=== PATIENT | male | born 1955 | race Caucasian/White ===

== ENCOUNTER 2018-05-04 22:03 | Inpatient (IN) | payer MEDICAID, SELFPAY ==
[2018-05-04 22:04] VITALS: BP 144/86; PULSE 125; RESP 20; TEMP 39.1; O2SAT 94; BMI 35.6
--- NOTE | 2018-05-04 22:21 | RAD_ITS ---
STUDY: X-RAY CHEST REASON FOR EXAM: Male, 63 years old. Shortness of breath, fever TECHNIQUE: A single frontal view of the chest was obtained. COMPARISON: Chest radiographs dated April 29, 2016; chest CT dated February 15, 2017 FINDINGS: The lungs are hyperinflated. There are patchy airspace opacities in the right upper lung. There is focal pleural thickening in the right upper chest. The cardiac silhouette is normal in size. There is prominence in the right hilar region and right suprahilar region. Normal visualized pulmonary arteries. Normal visualized aortic arch and descending thoracic aorta. There are diffuse degenerative changes of the visualized spine. There are degenerative changes in both shoulders. There is no demonstrated abnormality of the visualized upper abdomen. RAD/Chest 1 View (Portable) IMPRESSION: There are patchy opacities in the right upper lung, possible consolidation/infection. There is no obvious effusion. There is fullness in the right hilum and right suprahilar region, possible mass. There is also focal pleural thickening in the right upper chest. Chest CT with contrast is recommended for further characterization. Electronically Signed: Zaria Ewing MD at 23:38 EDT Tel Direct: [phone], Service support ,
--- NOTE | 2018-05-04 22:21 | EKG12_ITS ---
Test Reason : SOB Blood Pressure : / mmHG Vent. Rate : 111 BPM Atrial Rate : 111 BPM P-R Int : 172 ms QRS Dur : 082 ms QT Int : 320 ms P-R-T Axes : 013 001 044 degrees QTc Int : 435 ms Sinus tachycardia with Premature supraventricular complexes Otherwise normal ECG Confirmed by GAETANO REID, NIKHIL ([id number]), bloom conveyor operator BYRON SAN ([id number] on 05/06/2018 3:42:01 PM Referred By: DR SOTO Confirmed By:NIKHIL SALTER MD
[2018-05-04 22:45] VITALS: PULSE 108; RESP 20
[2018-05-04] MEDS: Albuterol 2.5 MG/3 ML VIAL.NEB. INHALATION (22:45)
[2018-05-04] MEDS: Ipratropium/Albuterol Sulfate 3 ML AMPUL.NEB INHALATION (22:45)
--- NOTE | 2018-05-04 22:51 | ED.VISSUMM ---
- ER Visit Summary Date of Service: 05/04/18 Chief Complaint: Fever, cough, shortness of breath History of Present Illness: The patient is a 63 M with history of squamous cell lung cancer who follows with oncology at [facility] presents to the emergency department fever, cough, shortness of breath. The patient's last chemo was almost 2 weeks ago. He was hospitalized 8 days ago at [facility]. He had a fever at that time. He was diagnosed with pneumonia and placed on Levaquin. He states that at home, he is continued to have dyspnea and fever. He is also had generalized weakness and shortness of breath. He had productive cough. Tonight, he just felt like he could not catch his breath and had increasing weakness. He has had 35 radiation treatments to his chest. He also has a known history of thrombocytopenia. He states that he is just felt generally weak and not myself. Physical Examination: Vital signs reviewed General: Well-nourished, well-developed Head: Normocephalic, atraumatic Eyes: Pupils equal and reactive, extraocular muscles intact Neck, supple, no lymphadenopathy Heart: Regular tachycardic rhythm Respiratory: No distress, diminished with wheezes throughout Abdomen: Soft, nontender, nondistended, no peritoneal signs Back: Nontender Extremities: Nontender, no edema, no cords Skin: Normal color no rash Neuro: Alert and oriented, no focal or lateralizing deficits Test Results: [] Emergency Department Course and Treatment: The patient presents with cough, fever, and shortness of breath. He does have a history of squamous cell lung cancer. He was actually just recently admitted at [facility] for pneumonia. He has been on Levaquin for a full 7-day course. He had persistent dyspnea, cough, pneumonia. Sepsis workup was pursued. IV was established. Blood cultures were obtained. The patient was given Solu-Medrol and nebulized breathing treatments. He had improvement of his aeration. His chest x-ray does demonstrate a right upper lobe infiltrate. The patient was started on meropenem and then when he was found to not be neutropenic, I did cover him with vancomycin given his recent hospitalization. Screening labs do show pancytopenia which does appear to be chronic for the patient. He has known thrombocytopenia and at his baseline per the patient. On reevaluation, he is comfortable. However, he has definitive sepsis with pneumonia. I will broaden his antibiotics and bad vancomycin. The patient was discussed with the hospitalist and will be admitted. Treatment Plan: Admission Disposition: Admission Impression: 1. Sepsis 2. Healthcare associated pneumonia 3. History of squamous cell lung cancer This note was generated with [employer] dictation software. It may contain incorrect words, spelling, and punctuation that were not noted in review of the chart prior to signing ED Disposition - Plan for ED Patient: Chief Complaint: Shortness of Breath Referrals: Bravo Walters MD [Primary Care Provider] -
[2018-05-04 23:05] VITALS: BP 116/72; PULSE 107; RESP 19; O2SAT 98; O2SAT 99
[2018-05-04] MEDS: Acetaminophen 500 MG Tablet 1000 MG PO (23:09)
[2018-05-04] MEDS: 0.9% Normal Saline 1,000 ML 150 ML IV (23:09)
[2018-05-04] MEDS: MethylPREDNISolone 125 MG/2 ML Vial IV (23:09)
[2018-05-04 23:24] LABS: Partial Thromboplast Time 26.9 Seconds (24.1-36.2)
[2018-05-04 23:45] LABS: Absolute Lymphocyte Count 0.59 X10^3/ul (0.83-4.51); Absolute Neutrophil Count 7.5 X10^3/uL (2.0-7.7); Basophil# 0.01 X10^3/uL; Basophil% 0.1 % (0-1); Hemoglobin 9.4 g/dl (13.0-16.5); Lymphocyte # 0.59 X10^3/ul (4.0); Lymphocyte % 6.4 % (19-41); Mean Corp Hgb Conc 31.3 g/gl (32-36); Mean Corpuscular Hgb 33.8 pg (27.0-32.0); Mean Corpuscular Volume 107.9 fL (80-94); Mean Platelet Vol. 12.7 fl (6.2-12.0); Monocyte# 1.09 X10^3/uL; Monocyte% 11.8 % (0-10); Neutrophil # 7.48 X10^3/uL (2.7-7.7); RBC Distribution Width CV 19.1 % (11.6-14.6); RBC Distribution Width SD 68.8 fl (35.1-43.9); Red Blood Count 2.78 M/mm3 (4.6-6.2); White Blood Count 9.2 K/mm3 (4.4-11.0)
[2018-05-04 23:47] LABS: AST(SGOT) 17 U/L (15-37); Alanine Aminotransfer ALT/SGPT 21 U/L (16-61); Albumin, Serum 2.8 g/dL (3.2-5.0); Alkaline Phosphatase 71 U/L (45-117); Anion Gap 9 (5-15); BUN 12 mg/dL (7-18); BUN/Creat Ratio 15.3 RATIO (10-20); Calcium,Total 7.5 mg/dL (8.5-10.1); Chloride 98 mmol/L (98-107); Creatinine, Serum 0.78 mg/dL (0.70-1.30); EST Glomerular Filtration Rate 106 mL/min (>60); Est Glom Filt Rate - Afr Amer 128 mL/min (>60); Estimated Creatinine Clearance 80.11 ml/min; Globulin 2.8 g/dL (2.2-4.2); Glucose 100 mg/dL (74-106); POSITIVE COUNT YES; POSITIVE DIFFERENTIAL YES; POSITIVE MORPHOLOGY YES; Protein, Total 5.6 g/dL (6.4-8.2); Sodium Level 137 mmol/L (136-145)
[2018-05-04 23:48] LABS: Differential Indicated SCAN CRITERIA MET; Platelet Count 48 K/mm3 (150-450)
--- NOTE | 2018-05-04 23:49 | ED.RN ---
lab called with critical lab results. PLT count 48. Dr. Mosqueda made aware. no new orders at this time
[2018-05-05] VITALS (19 sets, daily range): BP systolic 112–141; BP diastolic 59–69; PULSE 84–112; RESP 14–18; TEMP 36.6–37.4; O2SAT 2–98; BMI 36.1; BMI 36.2
[2018-05-05 00:08] LABS: Differential Comment SCAN
[2018-05-05 00:09] LABS: Anisocytosis 1+; Hypochromasia 1+; Macrocytosis 1+; Platelet Estimate MKD DEC (ADEQ); Platelet Morphology LARGE; Polychromasia 1+
[2018-05-05 00:10] LABS: Toxic Granulation 1+; Vacuolated Cells RARE
--- NOTE | 2018-05-05 00:18 | PCM.HP.STD ---
Problem List (1) Healthcare associated bacterial pneumonia Status: Acute (2) Squamous cell carcinoma of right lung Status: Acute History of Present Illness Date of Admission: 05/05/18 Chief Complaint: Shortness of breath and fever The patient is a 63 year old M with a significant history of former tobacco abuse; right lung squamous cell carcinoma; COPD; home oxygen dependency at night;and diabetes who presents with shortness of breath and fever that started about 10 days ago. Patient reported that he was admitted at [facility] and was treated with Levaquin and prednisone. He completed his Levaquin dose 2 days before coming to the emergency department; and his prednisone a day before coming to the emergency department. Patient has shortness of breath at rest. He shortness of breath increases excessively with activities. Associated with symptoms is productive cough of yellowish green color. He also reports some nasal congestion. Associated with his symptoms is poor appetite. He reports losing about 26 pounds in the last 4-5 months. In regard to his squamous cell lung cancer he sees an oncologist in [place]. He reports that he has a 2 inch mass in his right lungs and bilateral lymph nodes suspicious for cancer. He reported that he is scheduled to have a PET scan on May 13 2018 at [place]. Emergency department doctor reported that patient had 35 radiation and a chemotherapy treatment. His last chemotherapy was 13 days ago. Past Medical History Allergies Penicillins Allergy (Verified 05/04/18 22:07) Hives Home Medications: Ambulatory Orders Medication Instructions Recorded Albuterol Aerosols [Ventolin 2.5 mg INHALATION Q6HWA.RT 05/04/18 Aerosols] Albuterol Inhaler [Ventolin Hfa 2 puff INHALATION Q6H PRN PRN 05/04/18 (SP)] Ascorbic Acid [Vitamin C] 500 mg PO DAILY@0800 05/04/18 Budesonide [Pulmicort Flexhaler] 2 puff IH Q12H 05/04/18 Cyanocobalamin [Vitamin B12] 500 mcg PO DAILY@0800 05/04/18 Gabapentin [Neurontin] 300 mg PO TIDCM 05/04/18 Metformin HCl [Glucophage Xr] 500 mg PO DAILY 05/04/18 Omeprazole 40 mg PO DAILY 05/04/18 Simvastatin [Zocor] 40 mg PO DAILY 05/04/18 Tiotropium [place] [Spiriva 2 puff IH DAILY 05/04/18 Respimat] Turmeric/Turmeric Root Extract 500 mg PO BID 05/04/18 [Turmeric 500 mg Capsule] Vitamin E 400 unit PO DAILY 05/04/18 Surgical History: cholecystectomy, - - Right index finger surgery Lives: Alone Smoking Status: Former smoker Alcohol: Occasional - *Family History Maternal History Items: Heart Disease Paternal History Items: Heart Disease Review of Systems Constitutional: Reports: Fever, Weight Change. Denies: Chills HEENT: Reports: Sinus Congestion. Denies: Head Aches, Sinus Drainage Cardiovascular: Denies: Chest Pain, Palpitations Respiratory: Reports: Cough, Shortness of breath at rest, Shortness of breath upon exertion, Sputum production Gastrointestinal: Denies: Abdominal Pain, Nausea, Vomiting Genitourinary: Denies: Dysuria Musculoskeletal: Denies: Joint Pain, Joint Tenderness Skin: Denies: Rash, Wounds Neurological: Denies: Numbness, Tingling, Focal weakness Psychiatric: Denies: Anxiety, Depression, Homicidal Ideations, Suicidal Ideations Hematologic/ Lymphatic: Denies: Easy Bruising, Easy Bleeding VTE Information - Inpt Only VTE Present on Admission: No VTE Mechan Device Prophylaxis: SCD's VTE Pharm Prophylaxis ordered?: No Patient Problems: Active and Suspected Problems Healthcare associated bacterial pneumonia (Acute) Squamous cell carcinoma of right lung (Acute) - Physical Exam General: Alert, Oriented x3, Cooperative HEENT: Atraumatic, PERRLA, EOMI, Normocephalic Neck: Supple, No JVD, Negative Carotid Bruits Lungs: Clear to auscultation, Normal air movement, Tachypneic, Wheezes Cardiovascular: No murmurs, Tachycardic Abdomen: Bowel Sounds Present, Soft, Non Tender Extremities: No edema, Capillary Refill Less than 3 Seconds Skin: No rashes, No breakdown Musculoskeletal: No Tenderness to Palpation of Joints or Extremities Neurological: Cranial nerves II-XII grossly intact Psych/Mental Status: Normal Affect, Appropriate Vital Signs Temp Pulse Resp BP Pulse Ox 99.3 F H 112 H 16 125/59 H 95 05/05/18 00:12 05/05/18 00:12 05/05/18 00:12 05/05/18 00:12 05/05/18 00:12 Oxygen Flow Rate (L/min) 2 Oxygen Delivery Method Nasal Cannula Weight: 94.347 kg Body Mass Index (BMI) 35.6 Laboratory Tests Past 24 Hrs 05/04/18 05/04/18 05/04/18 22:55 22:55 22:55 WBC 9.2 RBC 2.78 L Hgb 9.4 L Hct 30.0 L MCV 107.9 H MCH 33.8 H MCHC 31.3 L RDW 19.1 H RDW Differential 68.8 H Plt Count 48 L* MPV 12.7 H Immature Gran % (Auto) 0.700 Neut % (Auto) 81.0 H Lymph % (Auto) 6.4 L [place]arrant % (Auto) 11.8 H Eos % (Auto) 0.0 Baso % (Auto) 0.1 Absolute Neuts (auto) 7.5 Absolute Lymphs (auto) 0.59 L Total Counted Not Reportable Differential Comment RARE Diff Path Review May foll Toxic Granulation 1+ Platelet Estimate MKD DEC Plt Morphology Comment LARGE Polychromasia 1+ Hypochromasia 1+ Anisocytosis 1+ Macrocytosis 1+ PT 13.0 INR 1.0 APTT 26.9 Sodium 137 Potassium 4.0 Chloride 98 Carbon Dioxide 30.0 Anion Gap 9 BUN 12 Creatinine 0.78 Estim Creat Clear Calc 80.11 Est GFR (MDRD) Af Amer 128 Est GFR (MDRD) Non-Af 106 BUN/Creatinine Ratio 15.3 Glucose 100 Lactic Acid Calcium 7.5 L Total Bilirubin 0.70 AST 17 ALT 21 Alkaline Phosphatase 71 Total Protein 5.6 L Albumin 2.8 L Globulin 2.8 Albumin/Globulin Ratio 1.0 Blood Type Antibody Screen 05/04/18 05/04/18 22:55 23:58 WBC RBC Hgb Hct MCV MCH MCHC RDW RDW Differential Plt Count MPV Immature Gran % (Auto) Neut % (Auto) Lymph % (Auto) [place] % (Auto) Eos % (Auto) Baso % (Auto) Absolute Neuts (auto) Absolute Lymphs (auto) Total Counted Differential Comment Diff Path Review Toxic Granulation Platelet Estimate Plt Morphology Comment Polychromasia Hypochromasia Anisocytosis Macrocytosis PT INR APTT Sodium Potassium Chloride Carbon Dioxide Anion Gap BUN Creatinine Estim Creat Clear Calc Est GFR (MDRD) Af Amer Est GFR (MDRD) Non-Af BUN/Creatinine Ratio Glucose Lactic Acid Pending Calcium Total Bilirubin AST ALT Alkaline Phosphatase Total Protein Albumin Globulin Albumin/Globulin Ratio Blood Type O POSITIVE Antibody Screen NEGATIVE Assessment/Plan All Active Problems Healthcare associated bacterial pneumonia (Acute) Squamous cell carcinoma of right lung (Acute) The patient is a 63 year old M with a significant history of former tobacco abuse; right lung squamous cell carcinoma; COPD; home oxygen dependency at night;and diabetes with persistent pneumonia after previous admission and treatment with Levaquin and steroids. Healthcare associated pneumonia. The patient went to [facility] and was admitted for pneumonia. Different diagnosis include obstructive pneumonia from his cancer. At emergency department his temperature was 102.4. He was tachycardic with heart rate of 130. His respiratory rate was 20. Patient was started on vancomycin and Merrem. Patient is allergic to penicillin. Vancomycin and Merrem continued. Blood cultures are pending Sputum culture ordered. Strep pneumonia antigen and Legionella antigen ordered. Will restart patient on prednisone. Incentive spirometer and acapella ordered. MRSA screen. COPD DuoNeb scheduled Albuterol as needed Prednisone in the setting of pneumonia. Diabetes mellitus Blood glucose on admission was within goal. Metformin continued. Accu-Chek q. before meals at bedtime. Pancytopenia Platelet on admission was 48 Hemoglobin on admission was 9.4. Likely due to chemotherapy. Trend CBC. Squamous cell carcinoma of the right lung. His oncologist is at [place]. While in-house will consult our oncology group. DVT prophylaxis Chemoprophylaxis not ordered due to thrombocytopenia SCD ordered. Code Visit Inpatient E&M: 26085 Init Hosp L3
[2018-05-05 00:33] LABS: Lactic Acid 1.3 mmol/L (0.4-2.0)
--- NOTE | 2018-05-05 02:27 | PCM.RX.CS ---
Consult Pharmacy has been consulted to manage selected antiobiotic: Vancomycin Type of Consult: New start Suspected Infection: Sepsis Prior Doses of Antibiotics Received/Current Regimen: Medications Vancomycin HCl 1,500 mg/ (Sodium Chloride) 530 mls @ 250 mls/hr IV Q12H LENNY Discontinued Medications Vancomycin HCl 1,500 mg/ (Dextrose) 530 mls @ 250 mls/hr IV X1 ONE Stop: 05/05/18 02:17 Last Admin: 05/05/18 00:43 Dose: 250 mls/hr Labs: Sodium 137 mmol/L (136-145) 05/04/18 22:55 Potassium 4.0 mmol/L (3.5-5.1) 05/04/18 22:55 Chloride 98 mmol/L (98-107) 05/04/18 22:55 Carbon Dioxide 30.0 mmol/L (21.0-32.0) 05/04/18 22:55 Anion Gap 9 (5-15) 05/04/18 22:55 BUN 12 mg/dL (7-18) 05/04/18 22:55 Creatinine 0.78 mg/dL (0.70-1.30) 05/04/18 22:55 Est GFR (MDRD) Af Amer 128 mL/min (>60) 05/04/18 22:55 Est GFR (MDRD) Non-Af 106 mL/min (>60) 05/04/18 22:55 BUN/Creatinine Ratio 15.3 RATIO (10-20) 05/04/18 22:55 Glucose 100 mg/dL (74-106) 05/04/18 22:55 Weight used for dosin.6 kg Estimated Creatinine Clearance: 80 Goal Trough: 15-20 mcg/mL Pharmacy Plan for Drug Dosing: Pharmacy Service will continue to monitor and adjust dosing as required. Follow-Up Labs: Trough Vancomycin Labs to be done on [date and time ordered]: 05/06/18 @1230
[2018-05-05] MEDS: Ipratropium/Albuterol Sulfate 3 ML AMPUL.NEB INHALATION ×6 (03:15→22:50)
[2018-05-05 05:44] LABS: Red Blood Cells-Urine 0 SEEN /hpf (0-5); Squamous Epithelial Cells - UA 0 SEEN /hpf (0-5)
[2018-05-05 05:51] LABS: Color, Urine Yellow (Yellow); Glucose, Dipstick Normal (Normal); Ketone-Dipstick Negative (Negative); Leukocyte Esterase-Dipstick 25 /ul (Negative); Nitrite-Dipstick Negative (Negative); Occult Blood-Urine 10 /ul (Negative); Protein-Dipstick 15 mg/dl (Negative); Urine Bilirubin Dipstick Negative (Negative); Urine Clarity Sl. Cloudy (Clear); Urine Urobilinogen Normal (Normal); Urine pH 6.5 (5.0 - 8.0)
[2018-05-05 06:16] LABS: Bacteria RARE /hpf (None Seen); Mucous, Urine RARE /hpf (<or=2+); White Blood Cells 0-5 SEEN /hpf (0-5)
[2018-05-05 06:19] LABS: Anion Gap 8 (5-15); BUN 16 mg/dL (7-18); BUN/Creat Ratio 20.5 RATIO (10-20); Calcium,Total 7.7 mg/dL (8.5-10.1); Chloride 99 mmol/L (98-107); Creatinine, Serum 0.78 mg/dL (0.70-1.30); EST Glomerular Filtration Rate 106 mL/min (>60); Est Glom Filt Rate - Afr Amer 129 mL/min (>60); Glucose 247 mg/dL (74-106); Potassium 4.6 mmol/L (3.5-5.1); Sodium Level 137 mmol/L (136-145)
[2018-05-05] MEDS: Ascorbic Acid 500 MG Tablet PO (07:53)
[2018-05-05] MEDS: Gabapentin 300 MG Capsule PO ×3 (07:54→21:36)
[2018-05-05] MEDS: Cyanocobalamin 500 MCG Tablet PO (07:54)
[2018-05-05] MEDS: predniSONE 20 MG Tablet 40 MG PO (07:54)
[2018-05-05] MEDS: Pantoprazole Sodium 40 MG Tablet PO (07:55)
[2018-05-05] MEDS: guaiFENesin 1,200 MG Tablet 1200 MG PO ×2 (07:55→21:36)
[2018-05-05 07:56] LABS: Bedside Glucose 239 mg/dL (70-110)
[2018-05-05 09:54] LABS: M R Staph aureus DNA By PCR Negative (Negative); Probe Check PASS; Specimen Processing Control PASS
--- NOTE | 2018-05-05 11:20 | PCM.PROGNOTE ---
<John Hernandez - Last Filed: 05/05/18 11:20> Patient Problems: Active and Suspected Problems Healthcare associated bacterial pneumonia (Acute) Squamous cell carcinoma of right lung (Acute) Subjective: Pt overall has had little to no improvement. DC'd last sunday from [facility] after being treated for pna. States the pna has never gone away, although he admits he was feeling well when he left the hospital. Fever yesterday, no recurrence so far. Continue to have cough without being able to cough up sputum yet. Continues SOB. Does not use Home O2. - Physical Exam General: Alert, Oriented x3, Cooperative HEENT: Atraumatic, PERRLA, EOMI, Normocephalic Neck: Supple, No JVD, Negative Carotid Bruits Lungs: Clear to auscultation, Normal air movement Cardiovascular: Regular rate, No murmurs Abdomen: Bowel Sounds Present, Soft, Non Tender Extremities: No edema, Capillary Refill Less than 3 Seconds Skin: No rashes, No breakdown Musculoskeletal: No Tenderness to Palpation of Joints or Extremities Neurological: Cranial nerves II-XII grossly intact Psych/Mental Status: Normal Affect, Appropriate, Alert and oriented to time, place, person, mood and affect Vital Signs Temp Pulse Resp BP Pulse Ox 97.9 F 88 16 121/67 H 98 05/05/18 09:55 05/05/18 10:56 05/05/18 10:56 05/05/18 09:55 05/05/18 09:55 Oxygen Flow Rate (L/min) 2 Oxygen Delivery Method Nasal Cannula Weight: 204 lb 2.369 oz Body Mass Index (BMI) 36.1 Intake and Output for Last 24 Hours 05/03/18 05/04/18 05/05/18 23:59 23:59 22:59 Intake Total 120 / 120 Output Total 100 / 100 Balance 20 / 20 Microbiology Past 72 Hours 05/05/18 05:22 Legionella Antigen - Final Urine, Clean Catch 05/05/18 05:22 Streptococcus pneumoniae Antigen (M - Final Urine, Clean Catch Laboratory Tests Past 24 Hrs 05/04/18 05/04/18 05/04/18 22:55 22:55 22:55 WBC 9.2 RBC 2.78 L Hgb 9.4 L Hct 30.0 L MCV 107.9 H MCH 33.8 H MCHC 31.3 L RDW 19.1 H RDW Differential 68.8 H Plt Count 48 L* MPV 12.7 H Immature Gran % (Auto) 0.700 Neut % (Auto) 81.0 H Lymph % (Auto) 6.4 L [place] % (Auto) 11.8 H Eos % (Auto) 0.0 Baso % (Auto) 0.1 Absolute Neuts (auto) 7.5 Absolute Lymphs (auto) 0.59 L Total Counted Not Reportable Differential Comment RARE Diff Path Review May foll Toxic Granulation 1+ Platelet Estimate MKD DEC Plt Morphology Comment LARGE Polychromasia 1+ Hypochromasia 1+ Anisocytosis 1+ Macrocytosis 1+ PT 13.0 INR 1.0 APTT 26.9 Sodium 137 Potassium 4.0 Chloride 98 Carbon Dioxide 30.0 Anion Gap 9 BUN 12 Creatinine 0.78 Estim Creat Clear Calc 80.11 Est GFR (MDRD) Af Amer 128 Est GFR (MDRD) Non-Af 106 BUN/Creatinine Ratio 15.3 Glucose 100 Lactic Acid Calcium 7.5 L Total Bilirubin 0.70 AST 17 ALT 21 Alkaline Phosphatase 71 Total Protein 5.6 L Albumin 2.8 L Globulin 2.8 Albumin/Globulin Ratio 1.0 Urine Color Urine Clarity Urine pH Ur Specific [place] Urine Protein Urine Glucose (UA) Urine Ketones Urine Occult Blood Urine Nitrite Urine Bilirubin Urine Urobilinogen Ur Leukocyte Esterase Urine RBC Urine WBC Ur Squamous Epith Cells Urine Bacteria Urine Mucus MRSA (PCR) Blood Type Antibody Screen 05/04/18 05/04/18 05/05/18 22:55 23:58 05:00 WBC RBC Hgb Hct MCV MCH MCHC RDW RDW Differential Plt Count MPV Immature Gran % (Auto) Neut % (Auto) Lymph % (Auto) [place] % (Auto) Eos % (Auto) Baso % (Auto) Absolute Neuts (auto) Absolute Lymphs (auto) Total Counted Differential Comment Diff Path Review Toxic Granulation Platelet Estimate Plt Morphology Comment Polychromasia Hypochromasia Anisocytosis Macrocytosis PT INR APTT Sodium 137 Potassium 4.6 Chloride 99 Carbon Dioxide 30.0 Anion Gap 8 BUN 16 Creatinine 0.78 Estim Creat Clear Calc 77.00 Est GFR (MDRD) Af Amer 129 Est GFR (MDRD) Non-Af 106 BUN/Creatinine Ratio 20.5 H Glucose 247 H Lactic Acid 1.3 Calcium 7.7 L Total Bilirubin AST ALT Alkaline Phosphatase Total Protein Albumin Globulin Albumin/Globulin Ratio Urine Color Urine Clarity Urine pH Ur Specific [place] Urine Protein Urine Glucose (UA) Urine Ketones Urine Occult Blood Urine Nitrite Urine Bilirubin Urine Urobilinogen Ur Leukocyte Esterase Urine RBC Urine WBC Ur Squamous Epith Cells Urine Bacteria Urine Mucus MRSA (PCR) Blood Type O POSITIVE Antibody Screen NEGATIVE 05/05/18 05/05/18 05:22 07:40 WBC RBC Hgb Hct MCV MCH MCHC RDW RDW Differential Plt Count MPV Immature Gran % (Auto) Neut % (Auto) Lymph % (Auto) [place] % (Auto) Eos % (Auto) Baso % (Auto) Absolute Neuts (auto) Absolute Lymphs (auto) Total Counted Differential Comment Diff Path Review Toxic Granulation Platelet Estimate Plt Morphology Comment Polychromasia Hypochromasia Anisocytosis Macrocytosis PT INR APTT Sodium Potassium Chloride Carbon Dioxide Anion Gap BUN Creatinine Estim Creat Clear Calc Est GFR (MDRD) Af Amer Est GFR (MDRD) Non-Af BUN/Creatinine Ratio Glucose Lactic Acid Calcium Total Bilirubin AST ALT Alkaline Phosphatase Total Protein Albumin Globulin Albumin/Globulin Ratio Urine Color Yellow Urine Clarity Sl. Cloudy Urine pH 6.5 Ur Specific [place] 1.010 Urine Protein 15 H Urine Glucose (UA) Normal Urine Ketones Negative Urine Occult Blood 10 H Urine Nitrite Negative Urine Bilirubin Negative Urine Urobilinogen Normal Ur Leukocyte Esterase 25 H Urine RBC 0 SEEN Urine WBC 0-5 SEEN Ur Squamous Epith Cells 0 SEEN Urine Bacteria RARE Urine Mucus RARE MRSA (PCR) Negative Blood Type Antibody Screen POC Glucose 05/05/18 07:42 POC Glucose 239 H Medical Necessity - Tobacco Use Smoking Status: Former smoker Assessment/Plan All Active Problems Healthcare associated bacterial pneumonia (Acute) Squamous cell carcinoma of right lung (Acute) 1. Acute sepsis 2/2 HCAP present on admission 2/2 postobstructive pna, fever, tachycardia, tachypnea - continue Vanc/merrem. Right lung CA. Continue aerosols, steroids, mucinex, PEP/IS therapy. Urine ag neg. Sputum culture if possible. Blood/Urine Cx pending. 2. Squamous cell lung CA - bernarda oncologist. [facility] consulted. Last chemo about 2 weeks ago. 3. COPD - taper steroids, aerosols. Not wheezy. Treat as presumed exacerbation 4. DMt2 with obesity- sliding scale insulin, metformin 5. GERD - ppi 6. Anemia and thrombocytopenia - suspect 2/2 cancer/chemo. Wait for recommendation per Hem/Onc. Avoid heparin products 7. HLD - on statin DVT ppx: SCDs DC planning: suspect slow recovery This patient was seen by John Hernandez PA-C under the supervision of Doctor Antonella. <Shannon Berman - Last Filed: 05/05/18 13:42> - Physical Exam Vital Signs Temp Pulse Resp BP Pulse Ox 97.9 F 88 16 121/67 H 98 05/05/18 09:55 05/05/18 10:56 05/05/18 10:56 05/05/18 09:55 05/05/18 09:55 Oxygen Flow Rate (L/min) 2 Oxygen Delivery Method Nasal Cannula Weight: 92.6 kg Body Mass Index (BMI) 36.1 Intake and Output for Last 24 Hours 05/03/18 05/04/18 05/05/18 23:59 23:59 22:59 Intake Total 600 / 600 Output Total 100 / 100 Balance 500 / 500 Microbiology Past 72 Hours 05/05/18 05:22 Legionella Antigen - Final Urine, Clean Catch 05/05/18 05:22 Streptococcus pneumoniae Antigen (M - Final Urine, Clean Catch Laboratory Tests Past 24 Hrs 05/04/18 05/04/18 05/04/18 22:55 22:55 22:55 WBC 9.2 RBC 2.78 L Hgb 9.4 L Hct 30.0 L MCV 107.9 H MCH 33.8 H MCHC 31.3 L RDW 19.1 H RDW Differential 68.8 H Plt Count 48 L* MPV 12.7 H Immature Gran % (Auto) 0.700 Neut % (Auto) 81.0 H Lymph % (Auto) 6.4 L [place] % (Auto) 11.8 H Eos % (Auto) 0.0 Baso % (Auto) 0.1 Absolute Neuts (auto) 7.5 Absolute Lymphs (auto) 0.59 L Total Counted Not Reportable Differential Comment RARE Diff Path Review May foll Toxic Granulation 1+ Platelet Estimate MKD DEC Plt Morphology Comment LARGE Polychromasia 1+ Hypochromasia 1+ Anisocytosis 1+ Macrocytosis 1+ PT 13.0 INR 1.0 APTT 26.9 Sodium 137 Potassium 4.0 Chloride 98 Carbon Dioxide 30.0 Anion Gap 9 BUN 12 Creatinine 0.78 Estim Creat Clear Calc 80.11 Est GFR (MDRD) Af Amer 128 Est GFR (MDRD) Non-Af 106 BUN/Creatinine Ratio 15.3 Glucose 100 Lactic Acid Calcium 7.5 L Total Bilirubin 0.70 AST 17 ALT 21 Alkaline Phosphatase 71 Total Protein 5.6 L Albumin 2.8 L Globulin 2.8 Albumin/Globulin Ratio 1.0 Urine Color Urine Clarity Urine pH Ur Specific [place] Urine Protein Urine Glucose (UA) Urine Ketones Urine Occult Blood Urine Nitrite Urine Bilirubin Urine Urobilinogen Ur Leukocyte Esterase Urine RBC Urine WBC Ur Squamous Epith Cells Urine Bacteria Urine Mucus MRSA (PCR) Blood Type Antibody Screen 05/04/18 05/04/18 05/05/18 22:55 23:58 05:00 WBC RBC Hgb Hct MCV MCH MCHC RDW RDW Differential Plt Count MPV Immature Gran % (Auto) Neut % (Auto) Lymph % (Auto) [place] % (Auto) Eos % (Auto) Baso % (Auto) Absolute Neuts (auto) Absolute Lymphs (auto) Total Counted Differential Comment Diff Path Review Toxic Granulation Platelet Estimate Plt Morphology Comment Polychromasia Hypochromasia Anisocytosis Macrocytosis PT INR APTT Sodium 137 Potassium 4.6 Chloride 99 Carbon Dioxide 30.0 Anion Gap 8 BUN 16 Creatinine 0.78 Estim Creat Clear Calc 77.00 Est GFR (MDRD) Af Amer 129 Est GFR (MDRD) Non-Af 106 BUN/Creatinine Ratio 20.5 H Glucose 247 H Lactic Acid 1.3 Calcium 7.7 L Total Bilirubin AST ALT Alkaline Phosphatase Total Protein Albumin Globulin Albumin/Globulin Ratio Urine Color Urine Clarity Urine pH Ur Specific [place] Urine Protein Urine Glucose (UA) Urine Ketones Urine Occult Blood Urine Nitrite Urine Bilirubin Urine Urobilinogen Ur Leukocyte Esterase Urine RBC Urine WBC Ur Squamous Epith Cells Urine Bacteria Urine Mucus MRSA (PCR) Blood Type O POSITIVE Antibody Screen NEGATIVE 05/05/18 05/05/18 05:22 07:40 WBC RBC Hgb Hct MCV MCH MCHC RDW RDW Differential Plt Count MPV Immature Gran % (Auto) Neut % (Auto) Lymph % (Auto) [place] % (Auto) Eos % (Auto) Baso % (Auto) Absolute Neuts (auto) Absolute Lymphs (auto) Total Counted Differential Comment Diff Path Review Toxic Granulation Platelet Estimate Plt Morphology Comment Polychromasia Hypochromasia Anisocytosis Macrocytosis PT INR APTT Sodium Potassium Chloride Carbon Dioxide Anion Gap BUN Creatinine Estim Creat Clear Calc Est GFR (MDRD) Af Amer Est GFR (MDRD) Non-Af BUN/Creatinine Ratio Glucose Lactic Acid Calcium Total Bilirubin AST ALT Alkaline Phosphatase Total Protein Albumin Globulin Albumin/Globulin Ratio Urine Color Yellow Urine Clarity Sl. Cloudy Urine pH 6.5 Ur Specific [place] 1.010 Urine Protein 15 H Urine Glucose (UA) Normal Urine Ketones Negative Urine Occult Blood 10 H Urine Nitrite Negative Urine Bilirubin Negative Urine Urobilinogen Normal Ur Leukocyte Esterase 25 H Urine RBC 0 SEEN Urine WBC 0-5 SEEN Ur Squamous Epith Cells 0 SEEN Urine Bacteria RARE Urine Mucus RARE MRSA (PCR) Negative Blood Type Antibody Screen POC Glucose 05/05/18 05/05/18 11:30 07:42 POC Glucose 245 H 239 H Assessment/Plan This patient was seen in conjunction with SABRINA Ruvalcaba. I have independently interviewed and examined the patient and reviewed pertinent historical, laboratory, and other data. Please refer to SABRINA Ruvalcaba note for his patient's presentation, findings, and recommendations. I have reviewed and his note and concur with his documentation 63-year-old male with past medical history of lung CAD status post chemotherapy, COPD, on 2 L of oxygen at night, type II DM, on insulin who comes in with complaints of shortness of breath and fever. He was recently admitted and treated in [facility]. Complains of fatigue and exertional dyspnea. No fevers seen overnight; T-max was 102.4 Vitals are stable Labs show hemoglobin of 9.4, RBC count of 9.2, platelet count of 48, BMP is unremarkable Physical Exam: Gen: Looks in some discomfort, not pale, not jaundiced CVS:HS I +II, regular, no murmurs RESP: Diminished at lung bases GI: Full, firm, nontender, no ballotable organs EXT:No edema ASSESSMENT: 1. HCAP, on vancomycin and Meropenem 2. COPD, not in acute exacerbation 3. Type 2 DM 4. Pancytopenia 5. Lung CA s/p chemo Plan: Continue on antibiotics, breathing treatments Labs in a.m. Code Visit Inpatient E&M: 83401 Subs Hosp L2
[2018-05-05 11:40] LABS: Bedside Glucose 245 mg/dL (70-110)
[2018-05-05] MEDS: 0.9% NaCl Peripheral Flush Adult/Peds IV ×2 (12:00→18:12)
[2018-05-05] MEDS: Insulin Lispro 100 UNIT/ML INSULN.PEN SC ×3 (12:00→21:36)
--- NOTE | 2018-05-05 13:52 | ONC.CONS.INP ---
Consult Referring Physician: Dr. Manas Banuelos Consult Results: NSCLC and pneumonia. 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 He took a break and started consolidation chemotherapy with Taxotere, his 2nd cycle was 2 weeks ago according to patient. He developed shortness of breath, was admitted to [facility] a week ago and discharged. Shortness of breath got worse so he came to [facility]. He reports that he is scheduled for PET/CT scan to assess disease on May 13, 2018 at [place]. Past Medical History: Chronic Problems Squamous cell carcinoma of right lung (Chronic) Past Medical/Surgical History: Past Medical History - Most Recent Inpatient Visit Past Medical History Start: 05/05/18 01:00 EST Text: Status: Complete Freq: ONCE Protocol: Document 05/05/18 01:00 EST KG (Rec: 05/05/18 01:11 EST KG [id number]) BMI Required to complete PMH What is Patient's BMI 36.2 Past Medical History Unable History Recalled Yes Query Text:Pt Unable/Family Not Present Neurologic Medical History Hx Stroke/TIA No Hx Dementia/Alzheimer's No Hx Parkinson's Disease No Hx Seizures No Hx Multiple Sclerosis No Hx Migraines No Comments Tremors but unsure of cause Cardiac Medical History VTE Present on Admission No Hx of Deep Vein Thrombosis/VTE/PE No Hx Hypertension No Hx Chest Pain/Angina No Hx Heart Attack No Hx Cardiac Surgery/Stents/Etc. No Hx Heart Failure No Hx Pacemaker/AICD No Hx Irregular Heartbeat and/or Afib Yes Hx Anticoagulant Therapy No Query Text:(Coumadin, Aspirin, Plavix, Xarelto, etc.) Hx Pain in Legs when Walking/Leg Cramps No Respiratory Medical History Hx COPD Yes Hx Emphysema Yes Hx Smoking No Smoking Status Former smoker Hx Smoking Cessation Counseling No Hx Smoking Exposure No Hx Tobacco Use in last 12 months No Hx of Pipe Smoking No Hx of Cigar Smoking No Hx Sleep Apnea No Do you snore loudly (louder than talking No or can be heard through closed doors)? Do you often feel tired/ fatigued/ No sleepy during daytime? Has anyone observed you stop breathing No during sleep? STOP Results Negative GI Medical History Hx Ulcer No Hx Hepatitis No Hx Cirrhosis No Hx GI Bleed No Hx Unplanned Weight Loss Yes Genitourinary Medical History Indwelling Catheter in Place on Arrival/ No Admission Hx Renal Disease No Hx Dialysis No Musculoskeletal History Hx Arthritis Yes: All over Hx Rheumatoid Arthritis No Comments Tendonitis right shoulder Degeneritis left shoulder Roaming arthritis Endocrine Medical History Hx Diabetes Yes Hx Thyroid Disease No Hematologic Medical History Hx of Blood Transfusion No Hx of Transfusion in last 3 Months No Ever experience any problems with No transfusion(s)? Hx of Preganancy in last 3 Months N/A Nurse Filling Out Transfusion & [facility]GR[facility] Questions: Date: 05/05/18 Time: 01:08 Psycho/Social Medical History Hx Depression No Hx Anxiety No Hx Behavior Disorder No Hx Alcohol Use Yes: months in between Hx Substance Use No Other Medical History Hx Blood Disorders No Hx Anemia No Hx Cancer Yes: LUNG Hx Drug Resistant Organism No Wound/Pressure Injury Present on Arrival No /Admission Query Text:If yes, chart assessment in Shift/Clinical Findings Central Line/PICC/VAD Present on Arrival Yes /Admission Antibiotics within last 7 days? Yes Name of Antibiotic (Include dose/# days LEvofloxacin taken if known) Last day ATB taken 05/03/18 Risk for Readmission Number of Risk Factors 7 At Risk for Readmission Patient is At Risk For Readmission Patient is eligible for Call Back Y Maternal Family History: Heart Disease Paternal Family History: Heart Disease - Social History Lives: Alone Smoking Status: Former smoker Alcohol: Occasional Allergies/Adverse Reactions: Allergy/AdvReac Type Severity Reaction Status Date / Time Penicillins Allergy Hives Verified 05/04/18 22:07 Review of Systems Constitutional:: Reports: Weakness, Fatigue. Denies: Fever, Sweats Cardiovascular:: Denies: Chest pain, Palpitations, Dyspnea on exertion, Orthopnea, PND, Shortness of breath Respiratory: Reports: Shortness of Breath, Shortness of breath at rest, Shortness of breath upon exertion. Denies: Cough, Hemoptysis, Wheezing Gastrointestinal:: Denies: Abdominal pain, Nausea, Vomiting, Diarrhea, Constipation, Hematochezia Genitourinary: Denies: Dysuria, Hematuria, 15, Flank pain Musculoskeletal:: Reports: Arthritis. Denies: Back pain, Myalgia, Arthralgia Skin: Denies: Rash, Skin Changes, Wounds Neurological:: Denies: Headache, Dizziness, Visual changes, Tinnitus, Hearing loss Psychiatric: Denies: Anxiety, Depression, Homicidal Ideations, Suicidal Ideations Vital Signs Height 5 ft 3 in Weight: 92.6 kg Weight in Pounds 204.1 lbs Pulse Ox 98 Temperature 97.9 F Pulse Rate 88 Respiratory Rate 16 Blood Pressure 121/67 Blood Pressure Position Semi-Fowlers - Physical Exam General: Alert, Oriented x3, No apparent distress HEENT: Atraumatic, PERRLA, EOMI, Normocephalic Oropharynx:: Dry mucosa, - - + Dentures. Neck:: Supple, Trachea midline. Negative for: JVD, bilateral Cardiac:: Regular rate, Regular rhythm, Normal S1, Normal S2. Negative for: Murmur Lungs: Clear to auscultation, Excusion symmetrical. Negative for: Rhonchi, Wheezes Abdomen:: Bowel sounds x 4, Soft, Non-tender, Non-distended. Negative for: Hepatosplenomegaly Extremities:: Negative for: Cyanosis, Edema Neurological: Neuro grossly intact Skin:: Negative for: Lesions, Rash, Petechiae, Ecchymosis Psychiatric:: Appropriate affect, Euthymic Lymphatics:: Negative for: Cervical lymphadenopathy, Supraclavicular lymphadenopathy, Axillary lymphadenopathy Laboratory Data: Microbiology 05/05/18 05:22 Legionella Antigen - Final Urine, Clean Catch 05/05/18 05:22 Streptococcus pneumoniae Antigen (M - Final Urine, Clean Catch Laboratory Tests 05/05/18 05/05/18 05/05/18 Range/Units 11:30 07:42 07:40 WBC (4.4-11.0) K/mm3 RBC (4.6-6.2) M/mm3 Hgb (13.0-16.5) g/dl Hct (40-54) % MCV (80-94) fL MCH (27.0-32.0) pg MCHC (32-36) g/gl RDW (11.6-14.6) % RDW Differential (35.1-43.9) fl Plt Count (150-450) K/mm3 MPV (6.2-12.0) fl Immature Gran % (Auto) (0.0-0.9) % Neut % (Auto) (47-70) % Lymph % (Auto) (19-41) % [place] % (Auto) (0-10) % Eos % (Auto) (0-5) % Baso % (Auto) (0-1) % Absolute Neuts (auto) (2.0-7.7) X10^3/uL Absolute Lymphs (auto) (0.83-4.51) X10^3/ul Total Counted Differential Comment Diff Path Review Toxic Granulation Platelet Estimate (ADEQ) Plt Morphology Comment Polychromasia Hypochromasia Anisocytosis Macrocytosis PT (11.7-14.9) SECONDS INR APTT (24.1-36.2) Seconds Sodium (136-145) mmol/L Potassium (3.5-5.1) mmol/L Chloride (98-107) mmol/L Carbon Dioxide (21.0-32.0) mmol/L Anion Gap (5-15) BUN (7-18) mg/dL Creatinine (0.70-1.30) mg/dL Estim Creat Clear Calc ml/min Est GFR (MDRD) Af Amer (>60) mL/min Est GFR (MDRD) Non-Af (>60) mL/min BUN/Creatinine Ratio (10-20) RATIO Glucose (74-106) mg/dL Lactic Acid (0.4-2.0) mmol/L Calcium (8.5-10.1) mg/dL Total Bilirubin (0.20-1.00) mg/dL AST (15-37) U/L ALT (16-61) U/L Alkaline Phosphatase (45-117) U/L Total Protein (6.4-8.2) g/dL Albumin (3.2-5.0) g/dL Globulin (2.2-4.2) g/dL Albumin/Globulin Ratio (0.9-2.4) RATIO Urine Color (Yellow) Urine Clarity (Clear) Urine pH (5.0 - 8.0) Ur Specific [place] (1.002-1.030) Urine Protein (Negative) mg/dl Urine Glucose (UA) (Normal) mg/dl Urine Ketones (Negative) mg/dl Urine Occult Blood (Negative) /ul Urine Nitrite (Negative) Urine Bilirubin (Negative) mg/dL Urine Urobilinogen (Normal) mg/dl Ur Leukocyte Esterase (Negative) /ul Urine RBC (0-5) /hpf Urine WBC (0-5) /hpf Ur Squamous Epith Cells (0-5) /hpf Urine Bacteria (None Seen) /hpf Urine Mucus (<or=2+) /hpf MRSA (PCR) Negative (Negative) POC Glucose 245 H 239 H (70-110) mg/dL Blood Type Antibody Screen 05/05/18 05/05/18 05/04/18 Range/Units 05:22 05:00 23:58 WBC (4.4-11.0) K/mm3 RBC (4.6-6.2) M/mm3 Hgb (13.0-16.5) g/dl Hct (40-54) % MCV (80-94) fL MCH (27.0-32.0) pg MCHC (32-36) g/gl RDW (11.6-14.6) % RDW Differential (35.1-43.9) fl Plt Count (150-450) K/mm3 MPV (6.2-12.0) fl Immature Gran % (Auto) (0.0-0.9) % Neut % (Auto) (47-70) % Lymph % (Auto) (19-41) % [place] % (Auto) (0-10) % Eos % (Auto) (0-5) % Baso % (Auto) (0-1) % Absolute Neuts (auto) (2.0-7.7) X10^3/uL Absolute Lymphs (auto) (0.83-4.51) X10^3/ul Total Counted Differential Comment Diff Path Review Toxic Granulation Platelet Estimate (ADEQ) Plt Morphology Comment Polychromasia Hypochromasia Anisocytosis Macrocytosis PT (11.7-14.9) SECONDS INR APTT (24.1-36.2) Seconds Sodium 137 (136-145) mmol/L Potassium 4.6 (3.5-5.1) mmol/L Chloride 99 (98-107) mmol/L Carbon Dioxide 30.0 (21.0-32.0) mmol/L Anion Gap 8 (5-15) BUN 16 (7-18) mg/dL Creatinine 0.78 (0.70-1.30) mg/dL Estim Creat Clear Calc 77.00 ml/min Est GFR (MDRD) Af Amer 129 (>60) mL/min Est GFR (MDRD) Non-Af 106 (>60) mL/min BUN/Creatinine Ratio 20.5 H (10-20) RATIO Glucose 247 H (74-106) mg/dL Lactic Acid 1.3 (0.4-2.0) mmol/L Calcium 7.7 L (8.5-10.1) mg/dL Total Bilirubin (0.20-1.00) mg/dL AST (15-37) U/L ALT (16-61) U/L Alkaline Phosphatase (45-117) U/L Total Protein (6.4-8.2) g/dL Albumin (3.2-5.0) g/dL Globulin (2.2-4.2) g/dL Albumin/Globulin Ratio (0.9-2.4) RATIO Urine Color Yellow (Yellow) Urine Clarity Sl. Cloudy (Clear) Urine pH 6.5 (5.0 - 8.0) Ur Specific [place] 1.010 (1.002-1.030) Urine Protein 15 H (Negative) mg/dl Urine Glucose (UA) Normal (Normal) mg/dl Urine Ketones Negative (Negative) mg/dl Urine Occult Blood 10 H (Negative) /ul Urine Nitrite Negative (Negative) Urine Bilirubin Negative (Negative) mg/dL Urine Urobilinogen Normal (Normal) mg/dl Ur Leukocyte Esterase 25 H (Negative) /ul Urine RBC 0 SEEN (0-5) /hpf Urine WBC 0-5 SEEN (0-5) /hpf Ur Squamous Epith Cells 0 SEEN (0-5) /hpf Urine Bacteria RARE (None Seen) /hpf Urine Mucus RARE (<or=2+) /hpf MRSA (PCR) (Negative) POC Glucose (70-110) mg/dL Blood Type Antibody Screen 05/04/18 05/04/18 05/04/18 Range/Units 22:55 22:55 22:55 WBC (4.4-11.0) K/mm3 RBC (4.6-6.2) M/mm3 Hgb (13.0-16.5) g/dl Hct (40-54) % MCV (80-94) fL MCH (27.0-32.0) pg MCHC (32-36) g/gl RDW (11.6-14.6) % RDW Differential (35.1-43.9) fl Plt Count (150-450) K/mm3 MPV (6.2-12.0) fl Immature Gran % (Auto) (0.0-0.9) % Neut % (Auto) (47-70) % Lymph % (Auto) (19-41) % [place] % (Auto) (0-10) % Eos % (Auto) (0-5) % Baso % (Auto) (0-1) % Absolute Neuts (auto) (2.0-7.7) X10^3/uL Absolute Lymphs (auto) (0.83-4.51) X10^3/ul Total Counted Differential Comment Diff Path Review Toxic Granulation Platelet Estimate (ADEQ) Plt Morphology Comment Polychromasia Hypochromasia Anisocytosis Macrocytosis PT 13.0 (11.7-14.9) SECONDS INR 1.0 APTT 26.9 (24.1-36.2) Seconds Sodium 137 (136-145) mmol/L Potassium 4.0 (3.5-5.1) mmol/L Chloride 98 (98-107) mmol/L Carbon Dioxide 30.0 (21.0-32.0) mmol/L Anion Gap 9 (5-15) BUN 12 (7-18) mg/dL Creatinine 0.78 (0.70-1.30) mg/dL Estim Creat Clear Calc 80.11 ml/min Est GFR (MDRD) Af Amer 128 (>60) mL/min Est GFR (MDRD) Non-Af 106 (>60) mL/min BUN/Creatinine Ratio 15.3 (10-20) RATIO Glucose 100 (74-106) mg/dL Lactic Acid (0.4-2.0) mmol/L Calcium 7.5 L (8.5-10.1) mg/dL Total Bilirubin 0.70 (0.20-1.00) mg/dL AST 17 (15-37) U/L ALT 21 (16-61) U/L Alkaline Phosphatase 71 (45-117) U/L Total Protein 5.6 L (6.4-8.2) g/dL Albumin 2.8 L (3.2-5.0) g/dL Globulin 2.8 (2.2-4.2) g/dL Albumin/Globulin Ratio 1.0 (0.9-2.4) RATIO Urine Color (Yellow) Urine Clarity (Clear) Urine pH (5.0 - 8.0) Ur Specific [place] (1.002-1.030) Urine Protein (Negative) mg/dl Urine Glucose (UA) (Normal) mg/dl Urine Ketones (Negative) mg/dl Urine Occult Blood (Negative) /ul Urine Nitrite (Negative) Urine Bilirubin (Negative) mg/dL Urine Urobilinogen (Normal) mg/dl Ur Leukocyte Esterase (Negative) /ul Urine RBC (0-5) /hpf Urine WBC (0-5) /hpf Ur Squamous Epith Cells (0-5) /hpf Urine Bacteria (None Seen) /hpf Urine Mucus (<or=2+) /hpf MRSA (PCR) (Negative) POC Glucose (70-110) mg/dL Blood Type O POSITIVE Antibody Screen NEGATIVE 05/04/18 Range/Units 22:55 WBC 9.2 (4.4-11.0) K/mm3 RBC 2.78 L (4.6-6.2) M/mm3 Hgb 9.4 L (13.0-16.5) g/dl Hct 30.0 L (40-54) % MCV 107.9 H (80-94) fL MCH 33.8 H (27.0-32.0) pg MCHC 31.3 L (32-36) g/gl RDW 19.1 H (11.6-14.6) % RDW Differential 68.8 H (35.1-43.9) fl Plt Count 48 L* (150-450) K/mm3 MPV 12.7 H (6.2-12.0) fl Immature Gran % (Auto) 0.700 (0.0-0.9) % Neut % (Auto) 81.0 H (47-70) % Lymph % (Auto) 6.4 L (19-41) % [place] % (Auto) 11.8 H (0-10) % Eos % (Auto) 0.0 (0-5) % Baso % (Auto) 0.1 (0-1) % Absolute Neuts (auto) 7.5 (2.0-7.7) X10^3/uL Absolute Lymphs (auto) 0.59 L (0.83-4.51) X10^3/ul Total Counted Not Reportable Differential Comment RARE Diff Path Review May foll Toxic Granulation 1+ Platelet Estimate MKD DEC (ADEQ) Plt Morphology Comment LARGE Polychromasia 1+ Hypochromasia 1+ Anisocytosis 1+ Macrocytosis 1+ PT (11.7-14.9) SECONDS INR APTT (24.1-36.2) Seconds Sodium (136-145) mmol/L Potassium (3.5-5.1) mmol/L Chloride (98-107) mmol/L Carbon Dioxide (21.0-32.0) mmol/L Anion Gap (5-15) BUN (7-18) mg/dL Creatinine (0.70-1.30) mg/dL Estim Creat Clear Calc ml/min Est GFR (MDRD) Af Amer (>60) mL/min Est GFR (MDRD) Non-Af (>60) mL/min BUN/Creatinine Ratio (10-20) RATIO Glucose (74-106) mg/dL Lactic Acid (0.4-2.0) mmol/L Calcium (8.5-10.1) mg/dL Total Bilirubin (0.20-1.00) mg/dL AST (15-37) U/L ALT (16-61) U/L Alkaline Phosphatase (45-117) U/L Total Protein (6.4-8.2) g/dL Albumin (3.2-5.0) g/dL Globulin (2.2-4.2) g/dL Albumin/Globulin Ratio (0.9-2.4) RATIO Urine Color (Yellow) Urine Clarity (Clear) Urine pH (5.0 - 8.0) Ur Specific [place] (1.002-1.030) Urine Protein (Negative) mg/dl Urine Glucose (UA) (Normal) mg/dl Urine Ketones (Negative) mg/dl Urine Occult Blood (Negative) /ul Urine Nitrite (Negative) Urine Bilirubin (Negative) mg/dL Urine Urobilinogen (Normal) mg/dl Ur Leukocyte Esterase (Negative) /ul Urine RBC (0-5) /hpf Urine WBC (0-5) /hpf Ur Squamous Epith Cells (0-5) /hpf Urine Bacteria (None Seen) /hpf Urine Mucus (<or=2+) /hpf MRSA (PCR) (Negative) POC Glucose (70-110) mg/dL Blood Type Antibody Screen Diagnostic Data: Diagnostic Data Chest X-Ray 05/04/18 22:21 IMPRESSION: There are patchy opacities in the right upper lung, possible consolidation/infection. There is no obvious effusion. There is fullness in the right hilum and right suprahilar region, possible mass. There is also focal pleural thickening in the right upper chest. Chest CT with contrast is recommended for further characterization. Electronically Signed: Zaria Ewing MD at 23:38 EDT Tel Direct: [phone], Service support , Assessment and Plan Non-Small Cell lung cancer, squamous cell type, on consolidation chemotherapy with Taxotere at [facility]. Now admitted with Pneumonia. Clinically stable. Thrombocytopenia may be chemotherapy related. No need for PLT transfusion. Suggestion is to continue therapy for Pneumonia/COPD. If stable, he can be discharged to follow up with his Oncologist at [facility]. Thanks. Medications: Prescriptions This Visit Medication Instructions Recorded Albuterol Aerosols [Ventolin 2.5 mg INHALATION Q6HWA.RT 05/04/18 Aerosols] Albuterol Inhaler [Ventolin Hfa 2 puff INHALATION Q6H PRN PRN 05/04/18 (SP)] Ascorbic Acid [Vitamin C] 500 mg PO DAILY@0800 05/04/18 Budesonide [Pulmicort Flexhaler] 2 puff IH Q12H 05/04/18 Cyanocobalamin [Vitamin B12] 500 mcg PO DAILY@0800 05/04/18 Gabapentin [Neurontin] 300 mg PO TIDCM 05/04/18 Metformin HCl [Glucophage Xr] 500 mg PO DAILY 05/04/18 Omeprazole 40 mg PO DAILY 05/04/18 Simvastatin [Zocor] 40 mg PO DAILY 05/04/18 Tiotropium [place] [Spiriva 2 puff IH DAILY 05/04/18 Respimat] Turmeric/Turmeric Root Extract 500 mg PO BID 05/04/18 [Turmeric 500 mg Capsule] Vitamin E 400 unit PO DAILY 05/04/18 Insulin Human 75/25 [Humalog Mix 20 unit SQ TID PRN 05/05/18 75-25 Kwikpen] Medications Added to Medication List This Visit Category Date Time Status Ascorbic Acid [Vitamin C] Med 05/05/18 08:00 Active 500 mg PO DAILY@0800 Atorvastatin Calcium [Lipitor] Med 05/05/18 22:00 Active 20 mg PO DAILY@2200 Cyanocobalamin [Vitamin B12] Med 05/05/18 08:00 Active 500 mcg PO DAILY@0800 Gabapentin [Neurontin] Med 05/05/18 14:00 Active 300 mg PO 0700,1400,2200 Guaifenesin [Mucinex] Med 05/05/18 10:00 Active 1,200 mg PO BID Insulin Lispro [Humalog kwikpen (BKC)] Med 05/05/18 16:00 Active See Protocol SC ACHS Meropenem [Merrem] 500 mg Med 05/05/18 06:00 Active 0.9% Normal Saline 50 ml IV Q6 Metformin(XR) [Glucophage Xr] Med 05/05/18 08:00 Active 500 mg PO DAILYCM Pantoprazole Sodium [Protonix] Med 05/05/18 10:00 Active 40 mg PO DAILY Vancomycin IV 1,500 mg Med 05/05/18 13:00 Active 0.9% Normal Saline 500 ml IV Q12H Vancomycin IV Pharmacy to Dose 1,500 ea Med 05/05/18 10:00 Active 0.9% Normal Saline 500 ml IV PRN predniSONE tablet Med 05/05/18 08:00 Active 40 mg PO DAILY@0800 Primary Care Provider: Bravo Walters MD Referring Provider: - Problem List (1) Thrombocytopenia, acquired Status: Acute (2) Squamous cell carcinoma of right lung Status: Chronic Code Visit Office Visits / Consults: [id number] IP Consult [id number]
[2018-05-05 16:46] LABS: Bedside Glucose 202 mg/dL (70-110)
[2018-05-05] MEDS: Atorvastatin Calcium 20 MG Tablet PO (21:36)
[2018-05-05 21:46] LABS: Bedside Glucose 197 mg/dL (70-110)
[2018-05-06] VITALS (16 sets, daily range): BP systolic 119–138; BP diastolic 62–72; PULSE 82–110; RESP 16–20; TEMP 36.4–36.8; O2SAT 95–98
[2018-05-06 06:42] LABS: Absolute Lymphocyte Count 0.49 X10^3/ul (0.83-4.51); Absolute Neutrophil Count 7.6 X10^3/uL (2.0-7.7); Basophil# 0.01 X10^3/uL; Basophil% 0.1 % (0-1); Hematocrit 24.3 % (40-54); Hemoglobin 7.7 g/dl (13.0-16.5); Lymphocyte # 0.49 X10^3/ul (4.0); Lymphocyte % 5.4 % (19-41); Mean Corp Hgb Conc 31.7 g/gl (32-36); Mean Corpuscular Hgb 34.7 pg (27.0-32.0); Mean Corpuscular Volume 109.5 fL (80-94); Mean Platelet Vol. 12.1 fl (6.2-12.0); Monocyte# 0.82 X10^3/uL; Monocyte% 9.1 % (0-10); Neutrophil # 7.64 X10^3/uL (2.7-7.7); Neutrophil % 84.6 % (47-70); RBC Distribution Width CV 18.7 % (11.6-14.6); RBC Distribution Width SD 64.6 fl (35.1-43.9); Red Blood Count 2.22 M/mm3 (4.6-6.2)
[2018-05-06 06:54] LABS: Differential Indicated SCAN CRITERIA MET; POSITIVE COUNT NO; POSITIVE DIFFERENTIAL YES; POSITIVE MORPHOLOGY YES; Platelet Count 43 K/mm3 (150-450)
[2018-05-06] MEDS: Ipratropium/Albuterol Sulfate 3 ML AMPUL.NEB INHALATION ×4 (06:56→23:25)
[2018-05-06 07:09] LABS: Differential Comment SCANNED; Hypochromasia 2+; Macrocytosis 2+; Platelet Estimate MOD DEC (ADEQ); Toxic Granulation 2+
[2018-05-06 07:15] LABS: Bedside Glucose 144 mg/dL (70-110)
[2018-05-06] MEDS: Gabapentin 300 MG Capsule PO ×3 (08:48→21:46)
[2018-05-06] MEDS: Pantoprazole Sodium 40 MG Tablet PO (08:49)
[2018-05-06] MEDS: Cyanocobalamin 500 MCG Tablet PO (08:49)
[2018-05-06] MEDS: Ascorbic Acid 500 MG Tablet PO (08:49)
[2018-05-06] MEDS: predniSONE 20 MG Tablet 40 MG PO (08:49)
[2018-05-06] MEDS: guaiFENesin 1,200 MG Tablet 1200 MG PO ×2 (08:49→21:47)
--- NOTE | 2018-05-06 10:15 | PN_ITS ---
Patient Problems: Active and Suspected Problems Healthcare associated bacterial pneumonia (Acute) Thrombocytopenia (Acute) Thrombocytopenia, acquired (Acute) Subjective: Patient seen and examined. Still has a mild cough which is nonproductive but denies any fever chills, chest pain, abdominal pain, diarrhea vomiting. Patient is concerned because he states he keeps on having pneumonia and had just finished a course of levofloxacin and subsequently had a fever again and was admitted. He is now very comfortable about going home because he thinks that the pneumonia will recur. Vitals/I&O's: Vital Signs Temp Pulse Resp BP Pulse Ox 97.6 F L 83 16 119/72 98 05/06/18 07:56 05/06/18 08:00 05/06/18 07:56 05/06/18 07:56 05/06/18 07:56 Oxygen Flow Rate (L/min) 2 Oxygen Delivery Method Nasal Cannula Weight: 204 lb 2.369 oz Body Mass Index (BMI) 36.1 Intake and Output for Last 24 Hours 05/05/18 05/05/18 05/06/18 00:59 23:59 23:59 Intake Total 340 / 340 Output Total Balance 340 / 340 General: Alert, Oriented x3, Cooperative, No apparent distress HEENT: Atraumatic, PERRLA, EOMI, Normocephalic Oral: Moist Mucosa Neck: Supple, No JVD, Negative Carotid Bruits Lungs: Clear to auscultation, Normal air movement, No rhonchi, No wheeze, No rales Cardiovascular: Regular rate, Regular Rhythm, Normal S1, Normal S2, No murmurs Abdomen: Bowel Sounds Present, Soft, Non Tender, Non-Distended, No Hepato- splenomegaly Extremities: No clubbing, No cyanosis, No edema, Capillary Refill Less than 3 Seconds Skin: No rashes, No breakdown Musculoskeletal: No Tenderness to Palpation of Joints or Extremities Lymphatic: No Cervical, Supraclavicular, or Inguinal Adenopathy Neurological: Cranial nerves II-XII grossly intact, Neuro grossly intact, Motor Exam 5/5 strength throughout Psych/Mental Status: Normal Affect, Appropriate, Alert and oriented to time, place, person, mood and affect Microbiology Past 72 Hours 05/05/18 05:22 Urine, Clean Catch Urine Culture - Preliminary Culture exhibits no growth. 05/05/18 05:22 Urine, Clean Catch Legionella Antigen - Final 05/05/18 05:22 Urine, Clean Catch Streptococcus pneumoniae Antigen (M - Final Laboratory Results 05/05/18 11:30: POC Glucose 245 H 05/05/18 16:35: POC Glucose 202 H 05/05/18 21:30: POC Glucose 197 H 05/06/18 05:16: WBC 9.0, RBC 2.22 L, Hgb 7.7 L, Hct 24.3 L, MCV 109.5 H, MCH 34.7 H, MCHC 31.7 L, RDW 18.7 H, RDW Differential 64.6 H, Plt Count 43 L*, MPV 12.1 H, Immature Gran % (Auto) 0.800, Neut % (Auto) 84.6 H, Lymph % (Auto) 5.4 L , [place] % (Auto) 9.1, Eos % (Auto) 0.0, Baso % (Auto) 0.1, Absolute Neuts (auto) 7.6, Absolute Lymphs (auto) 0.49 L, Total Counted Not Reportable, Differential Comment SCANNED, Diff Path Review May foll, Toxic Granulation 2+, Platelet Estimate MOD DEC, Hypochromasia 2+, Macrocytosis 2+ 05/06/18 07:09: POC Glucose 144 H Diagnostic Data Chest X-Ray 05/04/18 22:21 IMPRESSION: There are patchy opacities in the right upper lung, possible consolidation/infection. There is no obvious effusion. There is fullness in the right hilum and right suprahilar region, possible mass. There is also focal pleural thickening in the right upper chest. Chest CT with contrast is recommended for further characterization. Electronically Signed: Zaria Ewing MD at 23:38 EDT Tel Direct: [phone], Service support , Current Medications Acetaminophen (Tylenol) 650 mg PO Q6H PRN PRN PRN Reason: Mild Pain (1-3)/Temp > 100.7 F Albuterol Sulfate (Ventolin Aerosols) 2.5 mg INHALATION Q2H PRN PRN PRN Reason: SHORTNESS OF BREATH Albuterol/Ipratropium (Duoneb) 3 ml INHALATION Q4H.RT LENNY Last Admin: 05/06/18 06:56 Dose: 3 ml Ascorbic Acid (Vitamin C) 500 mg PO DAILY@0800 [facility] Last Admin: 05/06/18 08:49 Dose: 500 mg Atorvastatin Calcium (Lipitor) 20 mg PO DAILY@2200 [facility] Last Admin: 05/05/18 21:36 Dose: 20 mg Cyanocobalamin (Vitamin B12) 500 mcg PO DAILY@0800 [facility] Last Admin: 05/06/18 08:49 Dose: 500 mcg Docusate Sodium (Colace) 200 mg PO BID PRN PRN PRN Reason: Constipation Gabapentin (Neurontin) 300 mg PO 0700,1400,2200 [facility] Last Admin: 05/06/18 08:48 Dose: 300 mg Guaifenesin (Mucinex) 1,200 mg PO BID [facility] Last Admin: 05/06/18 08:49 Dose: 1,200 mg Meropenem 500 mg/ Sodium (Chloride) 60 mls @ 100 mls/hr IV Q6 [facility] Last Admin: 05/06/18 05:37 Dose: 100 mls/hr Vancomycin IV Pharmacy to Dose (1,500 ea/ Sodium Chloride) 500 mls @ 250 mls/hr IV PRN PRN; Protocol Vancomycin HCl 1,500 mg/ (Sodium Chloride) 530 mls @ 250 mls/hr IV Q12H [facility] Last Admin: 05/06/18 02:05 Dose: 250 mls/hr Insulin Human Lispro (Humalog Kwikpen (Bkc)) 0 unit SC ACHS [facility]; Protocol Last Admin: 05/06/18 07:42 Dose: Not Given Magnesium Hydroxide (Milk Of Magnesia) 30 ml PO DAILY PRN PRN Reason: Constipation [facility] Last Admin: 05/06/18 08:49 Dose: 500 mg Ondansetron HCl (Zofran) 4 mg IV Q8H PRN PRN PRN Reason: Nausea Pantoprazole Sodium (Protonix) 40 mg PO DAILY [facility] Last Admin: 05/06/18 08:49 Dose: 40 mg Prednisone () 40 mg PO DAILY@0800 [facility] Last Admin: 05/06/18 08:49 Dose: 40 mg Sodium Chloride () 5 - 30 ml IV UD PRN PRN Reason: SALINE FLUSH Last Admin: 05/05/18 18:12 Dose: 10 ml Medical Necessity - Tobacco Use Smoking Status: Former smoker Assessment/Plan All Active Problems Healthcare associated bacterial pneumonia (Acute) Thrombocytopenia (Acute) Thrombocytopenia, acquired (Acute) 1.Sepsis due to HCAP * Patient feels better. Has remained afebrile over the past 48 hours. * On IV vancomycin and meropenem. Has a history of right lung cancer. * of pneumonia in a few weeks. Discussed with oncology. Oncology thinks that this is very likely due to pneumonia but may be due to radiation pneumonitis, radiation from lung cancer and he needs a follow-up CAT scan to further diagnose him. * Has had vancomycin and meropenem for 1 day. We will continue for 1 more days he gets 48 hours of antibiotics. * Blood cultures are pending. Sputum cultures are pending. Urine for Legionella and strep pneumonia antigen negative. * Transition to oral antibiotics tomorrow. * 2, Anemia * Hemoglobin is dropped to 7.7 from 8.4 is likely an anemia of chronic disease due to lung cancer. Patient currently stable and is asymptomatic. * Will hold off on transfusion for now and will consider transfusion if hemoglobin falls below 7. * 3. Small cell right lung cancer: * Oncology reviewed him. Patient was to follow-up with his oncologist in [place] upon discharge. * Currently on chemotherapy laceration was about 2 weeks ago. 4. Diabetes mellitus: on ISS and metformin. Accuchecks ACHS> 5. GERD: on PPI 6. Thrombocytopenia: platelets are 43 today. Likely chronic and due to desmond motherapy and cancer effects 7. COPD: stable. On breathing treatments and steroids 8. Hyperlipidemia: on statin DVT prophylaxis: SCDs. No anticoagulation o/a of thrombocytopenia Disposition: for DC tomorrow Code Visit Inpatient E&M: 66241 Subs Hosp L2
--- NOTE | 2018-05-06 10:46 | CASEMGMT ---
RN CM Assessment. Intro role of CM to patient in room. Presented to ER with pneumonia. Hx of COPD, DM, Lung Ca. PCP: Dr. Walters Pharmacy: [facility] Prescription coverage: yes through [facility] Insurance: [facility] Living Arrangements: apartment DME: Cane, Oxygen: through [employer] 2L, pt states wears only @ night. States has Concentrator, portable tanks, nebulizer. RNCM inquired re: someone bringing portable tank in if needed on dc. Pt stated I won't need it, I'll be fine without it. If Home oxygen testing shows pt requires cont. O2 on dc, pt will need to have someone bring portable tank in, or possibly [employer] can bring tank over for use. LNOK: Daughter Luz HUNTER PLAN: Home on dc.
[2018-05-06] MEDS: 0.9% NaCl Peripheral Flush Adult/Peds IV ×2 (11:13→21:47)
[2018-05-06] MEDS: Insulin Lispro 100 UNIT/ML INSULN.PEN SC ×3 (11:31→21:47)
[2018-05-06 11:41] LABS: Bedside Glucose 167 mg/dL (70-110)
[2018-05-06 13:21] LABS: Vancomycin, Trough Level 18.5 ug/mL (5.0-15.0)
--- NOTE | 2018-05-06 15:06 | CON.PCM_ITS ---
Problem List (1) Healthcare associated bacterial pneumonia Status: Acute Reason for Consult: pneumonia Consulted by: Dr. Woods History of Present Illness: The patient is a 63 year old M with squamous cell lung cancer, last chemo about 2 weeks ago, who presented 05/05 with fever. Had recently been admitted to [place], discharged on levaquin and prednisone. Abx finished 05/02, two days later developed fever, chills, SOB, not feeling well. Came to ED here, admitted on vanc and meropenem. Feeling about the same, no fever since admission. Temp was 102.4 on arrival. Now starting to have some sputum. No abd pain or n/v/d. Full ROS performed and neg except as noted above. - Medical History Past Medical History (Chronic Problems): Chronic Problems Squamous cell carcinoma of right lung (Chronic) Allergies/Adverse Reactions: Allergies Penicillins Allergy (Mild, Verified 05/06/18 14:59) Hives Reports tolerating amoxicillin and keflex in past with no issue Home Medications: Ambulatory Orders Medication Instructions Recorded Albuterol Aerosols [Ventolin 2.5 mg INHALATION Q6HWA.RT 05/04/18 Aerosols] Albuterol Inhaler [Ventolin Hfa 2 puff INHALATION Q6H PRN PRN 05/04/18 (SP)] Ascorbic Acid [Vitamin C] 500 mg PO DAILY@0800 05/04/18 Budesonide [Pulmicort Flexhaler] 2 puff IH Q12H 05/04/18 Cyanocobalamin [Vitamin B12] 500 mcg PO DAILY@0800 05/04/18 Gabapentin [Neurontin] 300 mg PO TIDCM 05/04/18 Metformin HCl [Glucophage Xr] 500 mg PO DAILY 05/04/18 Omeprazole 40 mg PO DAILY 05/04/18 Simvastatin [Zocor] 40 mg PO DAILY 05/04/18 Tiotropium [place] [Spiriva 2 puff IH DAILY 05/04/18 Respimat] Turmeric/Turmeric Root Extract 500 mg PO BID 05/04/18 [Turmeric 500 mg Capsule] Vitamin E 400 unit PO DAILY 05/04/18 Insulin Human 75/25 [Humalog Mix 20 unit SQ TID PRN 05/05/18 75-25 Kwikpen] - Social History SMOKING STATUS:: Former smoker Vital Signs Temp Pulse Resp BP Pulse Ox 98.0 F 98 16 138/69 H 97 05/06/18 12:32 05/06/18 12:32 05/06/18 12:32 05/06/18 12:32 05/06/18 12:32 Oxygen Flow Rate (L/min) 2 Oxygen Delivery Method Nasal Cannula Weight: 92.6 kg Body Mass Index (BMI) 36.1 Microbiology Past 72 Hours 05/05/18 05:22 Urine Culture - Preliminary Urine, Clean Catch Culture exhibits no growth. 05/05/18 05:22 Legionella Antigen - Final Urine, Clean Catch 05/05/18 05:22 Streptococcus pneumoniae Antigen (M - Final Urine, Clean Catch Laboratory Tests Past 24 Hrs 05/06/18 05/06/18 05:16 12:20 WBC 9.0 RBC 2.22 L Hgb 7.7 L Hct 24.3 L MCV 109.5 H MCH 34.7 H MCHC 31.7 L RDW 18.7 H RDW Differential 64.6 H Plt Count 43 L* MPV 12.1 H Immature Gran % (Auto) 0.800 Neut % (Auto) 84.6 H Lymph % (Auto) 5.4 L [place] % (Auto) 9.1 Eos % (Auto) 0.0 Baso % (Auto) 0.1 Absolute Neuts (auto) 7.6 Absolute Lymphs (auto) 0.49 L Total Counted Not Reportable Differential Comment SCANNED Diff Path Review May foll Toxic Granulation 2+ Platelet Estimate MOD DEC Hypochromasia 2+ Macrocytosis 2+ Vancomycin Trough 18.5 H - Other Studies Radiology: [] reviewed Other Studies: [] Route of nutrition/ use of supplements: [] Nutritional Intake: [] IV Site: [] Tomas Catheter: [] - Physical Exam General: Alert, Oriented x3, Cooperative, No apparent distress HEENT: Atraumatic, PERRLA, EOMI Neck: No Nodes Lungs: Clear to auscultation Cardiovascular: Regular rate, Regular Rhythm, No murmurs Abdomen: Soft, Non Tender, Non-Distended Extremities: No edema Skin: No rashes - radiation changes on chest wall IV Site: Peripheral, without redness Musculoskeletal: No Tenderness to Palpation of Joints or Extremities Neurological: Cranial nerves II-XII grossly intact - Assessment/Plan Antibiotics: [] Assessment/Plan: [] Active and Suspected Problems Healthcare associated bacterial pneumonia (Acute) Thrombocytopenia (Acute) Thrombocytopenia, acquired (Acute) Pneumonia - recently completed course of abx without much improved, started fever soon after finishing levaquin and prednisone. Has h/o lung cancer, getting chemotherapy. Dr. Campos is his local pulmologist. No further fever here, has been on vanc/meropenem. Reports hives with PCN, but no issue with amox or keflex in past. Will narrow abx to cefepime, check resp viral panel. May need pulm eval if breathing does not improve. Will follow, thank you.
[2018-05-06 15:34] LABS: Pathologist Review Reviewed
[2018-05-06 16:56] LABS: Bedside Glucose 165 mg/dL (70-110)
[2018-05-06] MEDS: Atorvastatin Calcium 20 MG Tablet PO (21:47)
[2018-05-06 22:00] LABS: Bedside Glucose 181 mg/dL (70-110)
[2018-05-07] VITALS (11 sets, daily range): BP systolic 110–121; BP diastolic 60–75; PULSE 82–103; RESP 18–20; TEMP 36.5–36.7; O2SAT 92–98
[2018-05-07] MEDS: 0.9% NaCl Peripheral Flush Adult/Peds IV ×2 (06:04→14:51)
[2018-05-07] MEDS: Gabapentin 300 MG Capsule PO ×2 (06:04→14:50)
[2018-05-07 06:39] LABS: Anion Gap 5 (5-15); BUN 14 mg/dL (7-18); BUN/Creat Ratio 28.3 RATIO (10-20); Calcium,Total 7.8 mg/dL (8.5-10.1); Chloride 105 mmol/L (98-107); EST Glomerular Filtration Rate 180 mL/min (>60); Est Glom Filt Rate - Afr Amer 218 mL/min (>60); Estimated Creatinine Clearance 120.12 ml/min; Glucose 141 mg/dL (74-106); Potassium 3.9 mmol/L (3.5-5.1); Sodium Level 141 mmol/L (136-145)
[2018-05-07 06:41] LABS: Absolute Lymphocyte Count 0.56 X10^3/ul (0.83-4.51); Absolute Neutrophil Count 6.7 X10^3/uL (2.0-7.7); Hematocrit 24.6 % (40-54); Hemoglobin 7.6 g/dl (13.0-16.5); Lymphocyte # 0.56 X10^3/ul (4.0); Lymphocyte % 7.2 % (19-41); Mean Corp Hgb Conc 30.9 g/gl (32-36); Mean Corpuscular Hgb 34.1 pg (27.0-32.0); Mean Corpuscular Volume 110.3 fL (80-94); Mean Platelet Vol. 11.6 fl (6.2-12.0); Monocyte# 0.52 X10^3/uL; Monocyte% 6.7 % (0-10); Neutrophil # 6.68 X10^3/uL (2.7-7.7); Neutrophil % 85.5 % (47-70); Platelet Count 50 K/mm3 (150-450); RBC Distribution Width CV 19.1 % (11.6-14.6); RBC Distribution Width SD 66.5 fl (35.1-43.9); Red Blood Count 2.23 M/mm3 (4.6-6.2); White Blood Count 7.8 K/mm3 (4.4-11.0)
[2018-05-07 06:55] LABS: Differential Indicated SCAN CRITERIA MET; POSITIVE COUNT NO; POSITIVE DIFFERENTIAL YES; POSITIVE MORPHOLOGY YES
[2018-05-07 06:56] LABS: Bedside Glucose 148 mg/dL (70-110)
[2018-05-07] MEDS: Ipratropium/Albuterol Sulfate 3 ML AMPUL.NEB INHALATION ×3 (07:19→14:43)
[2018-05-07 07:30] LABS: Anisocytosis 1+; Hypochromasia 2+; Macrocytosis 1+; Platelet Estimate MKD DEC (ADEQ)
[2018-05-07] MEDS: Ascorbic Acid 500 MG Tablet PO (08:55)
[2018-05-07] MEDS: predniSONE 20 MG Tablet 40 MG PO (08:55)
[2018-05-07] MEDS: Pantoprazole Sodium 40 MG Tablet PO (08:55)
[2018-05-07] MEDS: Cyanocobalamin 500 MCG Tablet PO (08:55)
[2018-05-07] MEDS: guaiFENesin 1,200 MG Tablet 1200 MG PO (08:55)
[2018-05-07 10:36] LABS: Pathologist Review Reviewed
[2018-05-07 10:48] LABS: Pathologist Review Reviewed
--- NOTE | 2018-05-07 10:53 | PN.ID_ITS ---
Patient Problems: Active and Suspected Problems Healthcare associated bacterial pneumonia (Acute) Thrombocytopenia (Acute) Thrombocytopenia, acquired (Acute) Subjective: Feeling fine, no fever, no cough, no n/v/d. - Physical Exam General: Alert, Cooperative, No apparent distress Lungs: Clear to auscultation, Normal air movement Cardiovascular: Regular rate, Regular Rhythm Abdomen: Soft, Non Tender, Non-Distended Skin: No rashes Vital Signs Temp Pulse Resp BP Pulse Ox 97.7 F L 93 20 H 114/60 94 05/07/18 08:53 05/07/18 08:53 05/07/18 08:53 05/07/18 08:53 05/07/18 08:53 Oxygen Flow Rate (L/min) 2 Oxygen Delivery Method Nasal Cannula Weight: 92.6 kg Body Mass Index (BMI) 36.1 Intake and Output for Last 24 Hours 05/05/18 05/06/18 05/07/18 23:59 23:59 23:59 Intake Total 1630 / 1630 250 / 250 Output Total Balance 1630 / 1630 250 / 250 Microbiology Past 72 Hours 05/04/18 22:55 Blood Culture - Preliminary Blood Culture (Wb) - Left Forearm No growth in 48 hours. 05/04/18 22:50 Blood Culture - Preliminary Blood Culture (Wb) - Anticubital Left No growth in 48 hours. 05/06/18 07:35 Gram Stain - Final Sputum, Expectorated/Coughed Respiratory Culture - Preliminary Yeast Like Organism 05/06/18 17:20 Respiratory Panel (PCR) - Final Mucosa - Nose 05/05/18 05:22 Urine Culture - Final Urine, Clean Catch Culture exhibits no growth. 05/06/18 17:20 Gram Stain - Preliminary Sputum, Expectorated/Coughed 05/05/18 05:22 Legionella Antigen - Final Urine, Clean Catch 05/05/18 05:22 Streptococcus pneumoniae Antigen (M - Final Urine, Clean Catch Laboratory Tests Past 24 Hrs 05/04/18 05/06/18 05/06/18 22:55 05:16 12:20 WBC RBC Hgb Hct MCV MCH MCHC RDW RDW Differential Plt Count MPV Immature Gran % (Auto) Neut % (Auto) Lymph % (Auto) [place] % (Auto) Eos % (Auto) Baso % (Auto) Absolute Neuts (auto) Absolute Lymphs (auto) Total Counted Diff Path Review Reviewed Reviewed Platelet Estimate Hypochromasia Anisocytosis Macrocytosis Sodium Potassium Chloride Carbon Dioxide Anion Gap BUN Creatinine Estim Creat Clear Calc Est GFR (MDRD) Af Amer Est GFR (MDRD) Non-Af BUN/Creatinine Ratio Glucose Calcium Vancomycin Trough 18.5 H 05/07/18 05/07/18 05:30 05:30 WBC 7.8 RBC 2.23 L Hgb 7.6 L Hct 24.6 L MCV 110.3 H MCH 34.1 H MCHC 30.9 L RDW 19.1 H RDW Differential 66.5 H Plt Count 50 L* MPV 11.6 Immature Gran % (Auto) 0.600 Neut % (Auto) 85.5 H Lymph % (Auto) 7.2 L [place] % (Auto) 6.7 Eos % (Auto) 0.0 Baso % (Auto) 0.0 Absolute Neuts (auto) 6.7 Absolute Lymphs (auto) 0.56 L Total Counted Not Reportable Diff Path Review Reviewed Platelet Estimate MKD DEC Hypochromasia 2+ Anisocytosis 1+ Macrocytosis 1+ Sodium 141 Potassium 3.9 Chloride 105 Carbon Dioxide 31.0 Anion Gap 5 BUN 14 Creatinine 0.50 L Estim Creat Clear Calc 120.12 Est GFR (MDRD) Af Amer 218 Est GFR (MDRD) Non-Af 180 BUN/Creatinine Ratio 28.3 H Glucose 141 H Calcium 7.8 L Vancomycin Trough POC Glucose 05/07/18 05/06/18 05/06/18 06:48 21:44 16:45 POC Glucose 148 H 181 H 165 H 05/06/18 11:29 POC Glucose 167 H Medical Necessity - Tobacco Use Smoking Status: Former smoker Route of nutrition/ use of supplements: [] Nutritional Intake: [] IV Site: [] Tomas Catheter: [] - Assessment/Plan Antibiotics: [] Assessment/Plan: [] Active and Suspected Problems Healthcare associated bacterial pneumonia (Acute) Thrombocytopenia (Acute) Thrombocytopenia, acquired (Acute) Pneumonia - recently completed course of abx without much improved, started fever soon after finishing levaquin and prednisone. Has h/o lung cancer, getting chemotherapy. Dr. Campos is his local pulmologist. No further fever here. Resp viral pcr was neg. Narrowed abx to cefepime. Cxs are neg except for some yeast contaminating his sputum. Ok for d/c home on po omnicef 300mg bid for 7 more days with onc and pulm followup. Will follow, D/w Dr. Woods.
--- NOTE | 2018-05-07 11:41 | PCM.DC ---
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) Thrombocytopenia (Acute) Thrombocytopenia, acquired (Acute) You will use the following diet at home:: Cardiac Your food should be the consistency of: Regular Your liquids should be the consistency of: Regular/Thin Discharge Activity: Return to Normal Activity Weight Bearing Status: Weight bearing as tolerated Call your doctor if you observe: Fever of 101 or Higher, Shortness of breath, Swelling in the ankles, Chest pain, Increased palpitations (irregular heartbeat) Allergies/Adverse Reactions: Allergies Penicillins Allergy (Mild, Verified 05/06/18 14:59) Hives Reports tolerating amoxicillin and keflex in past with no issue Medications to take at Discharge Albuterol Aerosols [Ventolin Aerosols] 2.5 mg INHALATION Q6HWA.RT 05/04/18 Albuterol Inhaler [Ventolin Hfa] 2 puff INHALATION Q6H PRN PRN 05/04/18 Ascorbic Acid [Vitamin C] 500 mg PO DAILY@0800 05/04/18 Budesonide [Pulmicort Flexhaler] 2 puff IH Q12H 05/04/18 Cyanocobalamin [Vitamin B12] 500 mcg PO DAILY@0800 05/04/18 Gabapentin [Neurontin] 300 mg PO TIDCM 05/04/18 Metformin HCl [Glucophage Xr] 500 mg PO DAILY 05/04/18 Omeprazole 40 mg PO DAILY 05/04/18 Simvastatin [Zocor] 40 mg PO DAILY 05/04/18 Tiotropium [place] [Spiriva Respimat] 2 puff IH DAILY 05/04/18 Turmeric/Turmeric Root Extract [Turmeric 500 mg Capsule] 500 mg PO BID 05/04/18 Vitamin E 400 unit PO DAILY 05/04/18 Insulin Human 75/25 [Humalog Mix 75-25 Kwikpen] 20 unit SQ TID PRN 05/05/18 Cefdinir [Omnicef [equiv]] 300 mg PO Q12H #14 capsule 05/07/18 Prednisone 40 mg PO DAILY 5 Days #10 tablet 05/07/18 The following prescriptions were given: Cefdinir [Omnicef [equiv]] 300 mg PO Q12H #14 capsule Prednisone 40 mg PO DAILY 5 Days #10 tablet Primary Care Physician: Bravo Walters MD [Primary Care Provider] - Please follow up with your Primary Care Physician in: 1 week Test Results: Test results from this visit will be discussed in further detail at your follow-up appointment, if applicable. When: oncologist in [place] in 1 week Please Follow Up With: Karthik Campos MD When: 1-2 weeks Proposed Discharge Date: 05/07/18
--- NOTE | 2018-05-07 11:45 | DS.PCM_ITS ---
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 There is no obvious effusion. There is fullness in the right hilum and right suprahilar region, possible mass. There is also focal pleural thickening in the right upper chest. Chest CT with contrast is recommended for further characterization. Electronically Signed: Zaria Ewing MD at 23:38 EDT Tel Direct: [phone], Service support , Laboratory Tests 05/07/18 05/07/18 05/07/18 Range/Units 11:20 06:48 05:30 WBC (4.4-11.0) K/mm3 RBC (4.6-6.2) M/mm3 Hgb (13.0-16.5) g/dl Hct (40-54) % MCV (80-94) fL MCH (27.0-32.0) pg MCHC (32-36) g/gl RDW (11.6-14.6) % RDW Differential (35.1-43.9) fl Plt Count (150-450) K/mm3 MPV (6.2-12.0) fl Immature Gran % (Auto) (0.0-0.9) % Neut % (Auto) (47-70) % Lymph % (Auto) (19-41) % [place] % (Auto) (0-10) % Eos % (Auto) (0-5) % Baso % (Auto) (0-1) % Absolute Neuts (auto) (2.0-7.7) X10^3/uL Absolute Lymphs (auto) (0.83-4.51) X10^3/ul Total Counted Differential Comment Diff Path Review Toxic Granulation Platelet Estimate (ADEQ) Plt Morphology Comment Polychromasia Hypochromasia Anisocytosis Macrocytosis PT (11.7-14.9) SECONDS INR APTT (24.1-36.2) Seconds Sodium 141 (136-145) mmol/L Potassium 3.9 (3.5-5.1) mmol/L Chloride 105 (98-107) mmol/L Carbon Dioxide 31.0 (21.0-32.0) mmol/L Anion Gap 5 (5-15) BUN 14 (7-18) mg/dL Creatinine 0.50 L (0.70-1.30) mg/dL Estim Creat Clear Calc 120.12 ml/min Est GFR (MDRD) Af Amer 218 (>60) mL/min Est GFR (MDRD) Non-Af 180 (>60) mL/min BUN/Creatinine Ratio 28.3 H (10-20) RATIO Glucose 141 H (74-106) mg/dL Lactic Acid (0.4-2.0) mmol/L Calcium 7.8 L (8.5-10.1) mg/dL Total Bilirubin (0.20-1.00) mg/dL AST (15-37) U/L ALT (16-61) U/L Alkaline Phosphatase (45-117) U/L Total Protein (6.4-8.2) g/dL Albumin (3.2-5.0) g/dL Globulin (2.2-4.2) g/dL Albumin/Globulin Ratio (0.9-2.4) RATIO Urine Color (Yellow) Urine Clarity (Clear) Urine pH (5.0 - 8.0) Ur Specific [place] (1.002-1.030) Urine Protein (Negative) mg/dl Urine Glucose (UA) (Normal) mg/dl Urine Ketones (Negative) mg/dl Urine Occult Blood (Negative) /ul Urine Nitrite (Negative) Urine Bilirubin (Negative) mg/dL Urine Urobilinogen (Normal) mg/dl Ur Leukocyte Esterase (Negative) /ul Urine RBC (0-5) /hpf Urine WBC (0-5) /hpf Ur Squamous Epith Cells (0-5) /hpf Urine Bacteria (None Seen) /hpf Urine Mucus (<or=2+) /hpf Vancomycin Trough (5.0-15.0) ug/mL MRSA (PCR) (Negative) POC Glucose 143 H 148 H (70-110) mg/dL Blood Type Antibody Screen 05/07/18 05/06/18 05/06/18 Range/Units 05:30 21:44 16:45 WBC 7.8 (4.4-11.0) K/mm3 RBC 2.23 L (4.6-6.2) M/mm3 Hgb 7.6 L (13.0-16.5) g/dl Hct 24.6 L (40-54) % MCV 110.3 H (80-94) fL MCH 34.1 H (27.0-32.0) pg MCHC 30.9 L (32-36) g/gl RDW 19.1 H (11.6-14.6) % RDW Differential 66.5 H (35.1-43.9) fl Plt Count 50 L* (150-450) K/mm3 MPV 11.6 (6.2-12.0) fl Immature Gran % (Auto) 0.600 (0.0-0.9) % Neut % (Auto) 85.5 H (47-70) % Lymph % (Auto) 7.2 L (19-41) % [place] % (Auto) 6.7 (0-10) % Eos % (Auto) 0.0 (0-5) % Baso % (Auto) 0.0 (0-1) % Absolute Neuts (auto) 6.7 (2.0-7.7) X10^3/uL Absolute Lymphs (auto) 0.56 L (0.83-4.51) X10^3/ul Total Counted Not Reportable Differential Comment Diff Path Review Reviewed Toxic Granulation Platelet Estimate MKD DEC (ADEQ) Plt Morphology Comment Polychromasia Hypochromasia 2+ Anisocytosis 1+ Macrocytosis 1+ PT (11.7-14.9) SECONDS INR APTT (24.1-36.2) Seconds Sodium (136-145) mmol/L Potassium (3.5-5.1) mmol/L Chloride (98-107) mmol/L Carbon Dioxide (21.0-32.0) mmol/L Anion Gap (5-15) BUN (7-18) mg/dL Creatinine (0.70-1.30) mg/dL Estim Creat Clear Calc ml/min Est GFR (MDRD) Af Amer (>60) mL/min Est GFR (MDRD) Non-Af (>60) mL/min BUN/Creatinine Ratio (10-20) RATIO Glucose (74-106) mg/dL Lactic Acid (0.4-2.0) mmol/L Calcium (8.5-10.1) mg/dL Total Bilirubin (0.20-1.00) mg/dL AST (15-37) U/L ALT (16-61) U/L Alkaline Phosphatase (45-117) U/L Total Protein (6.4-8.2) g/dL Albumin (3.2-5.0) g/dL Globulin (2.2-4.2) g/dL Albumin/Globulin Ratio (0.9-2.4) RATIO Urine Color (Yellow) Urine Clarity (Clear) Urine pH (5.0 - 8.0) Ur Specific [place] (1.002-1.030) Urine Protein (Negative) mg/dl Urine Glucose (UA) (Normal) mg/dl Urine Ketones (Negative) mg/dl Urine Occult Blood (Negative) /ul Urine Nitrite (Negative) Urine Bilirubin (Negative) mg/dL Urine Urobilinogen (Normal) mg/dl Ur Leukocyte Esterase (Negative) /ul Urine RBC (0-5) /hpf Urine WBC (0-5) /hpf Ur Squamous Epith Cells (0-5) /hpf Urine Bacteria (None Seen) /hpf Urine Mucus (<or=2+) /hpf Vancomycin Trough (5.0-15.0) ug/mL MRSA (PCR) (Negative) POC Glucose 181 H 165 H (70-110) mg/dL Blood Type Antibody Screen 05/06/18 05/06/18 05/06/18 Range/Units 12:20 11:29 07:09 WBC (4.4-11.0) K/mm3 RBC (4.6-6.2) M/mm3 Hgb (13.0-16.5) g/dl Hct (40-54) % MCV (80-94) fL MCH (27.0-32.0) pg MCHC (32-36) g/gl RDW (11.6-14.6) % RDW Differential (35.1-43.9) fl Plt Count (150-450) K/mm3 MPV (6.2-12.0) fl Immature Gran % (Auto) (0.0-0.9) % Neut % (Auto) (47-70) % Lymph % (Auto) (19-41) % [place] % (Auto) (0-10) % Eos % (Auto) (0-5) % Baso % (Auto) (0-1) % Absolute Neuts (auto) (2.0-7.7) X10^3/uL Absolute Lymphs (auto) (0.83-4.51) X10^3/ul Total Counted Differential Comment Diff Path Review Toxic Granulation Platelet Estimate (ADEQ) Plt Morphology Comment Polychromasia Hypochromasia Anisocytosis Macrocytosis PT (11.7-14.9) SECONDS INR APTT (24.1-36.2) Seconds Sodium (136-145) mmol/L Potassium (3.5-5.1) mmol/L Chloride (98-107) mmol/L Carbon Dioxide (21.0-32.0) mmol/L Anion Gap (5-15) BUN (7-18) mg/dL Creatinine (0.70-1.30) mg/dL Estim Creat Clear Calc ml/min Est GFR (MDRD) Af Amer (>60) mL/min Est GFR (MDRD) Non-Af (>60) mL/min BUN/Creatinine Ratio (10-20) RATIO Glucose (74-106) mg/dL Lactic Acid (0.4-2.0) mmol/L Calcium (8.5-10.1) mg/dL Total Bilirubin (0.20-1.00) mg/dL AST (15-37) U/L ALT (16-61) U/L Alkaline Phosphatase (45-117) U/L Total Protein (6.4-8.2) g/dL Albumin (3.2-5.0) g/dL Globulin (2.2-4.2) g/dL Albumin/Globulin Ratio (0.9-2.4) RATIO Urine Color (Yellow) Urine Clarity (Clear) Urine pH (5.0 - 8.0) Ur Specific [place] (1.002-1.030) Urine Protein (Negative) mg/dl Urine Glucose (UA) (Normal) mg/dl Urine Ketones (Negative) mg/dl Urine Occult Blood (Negative) /ul Urine Nitrite (Negative) Urine Bilirubin (Negative) mg/dL Urine Urobilinogen (Normal) mg/dl Ur Leukocyte Esterase (Negative) /ul Urine RBC (0-5) /hpf Urine WBC (0-5) /hpf Ur Squamous Epith Cells (0-5) /hpf Urine Bacteria (None Seen) /hpf Urine Mucus (<or=2+) /hpf Vancomycin Trough 18.5 H (5.0-15.0) ug/mL MRSA (PCR) (Negative) POC Glucose 167 H 144 H (70-110) mg/dL Blood Type Antibody Screen 05/06/18 05/05/18 05/05/18 Range/Units 05:16 21:30 16:35 WBC 9.0 (4.4-11.0) K/mm3 RBC 2.22 L (4.6-6.2) M/mm3 Hgb 7.7 L (13.0-16.5) g/dl Hct 24.3 L (40-54) % MCV 109.5 H (80-94) fL MCH 34.7 H (27.0-32.0) pg MCHC 31.7 L (32-36) g/gl RDW 18.7 H (11.6-14.6) % RDW Differential 64.6 H (35.1-43.9) fl Plt Count 43 L* (150-450) K/mm3 MPV 12.1 H (6.2-12.0) fl Immature Gran % (Auto) 0.800 (0.0-0.9) % Neut % (Auto) 84.6 H (47-70) % Lymph % (Auto) 5.4 L (19-41) % [place] % (Auto) 9.1 (0-10) % Eos % (Auto) 0.0 (0-5) % Baso % (Auto) 0.1 (0-1) % Absolute Neuts (auto) 7.6 (2.0-7.7) X10^3/uL Absolute Lymphs (auto) 0.49 L (0.83-4.51) X10^3/ul Total Counted Not Reportable Differential Comment SCANNED Diff Path Review Reviewed Toxic Granulation 2+ Platelet Estimate MOD DEC (ADEQ) Plt Morphology Comment Polychromasia Hypochromasia 2+ Anisocytosis Macrocytosis 2+ PT (11.7-14.9) SECONDS INR APTT (24.1-36.2) Seconds Sodium (136-145) mmol/L Potassium (3.5-5.1) mmol/L Chloride (98-107) mmol/L Carbon Dioxide (21.0-32.0) mmol/L Anion Gap (5-15) BUN (7-18) mg/dL Creatinine (0.70-1.30) mg/dL Estim Creat Clear Calc ml/min Est GFR (MDRD) Af Amer (>60) mL/min Est GFR (MDRD) Non-Af (>60) mL/min BUN/Creatinine Ratio (10-20) RATIO Glucose (74-106) mg/dL Lactic Acid (0.4-2.0) mmol/L Calcium (8.5-10.1) mg/dL Total Bilirubin (0.20-1.00) mg/dL AST (15-37) U/L ALT (16-61) U/L Alkaline Phosphatase (45-117) U/L Total Protein (6.4-8.2) g/dL Albumin (3.2-5.0) g/dL Globulin (2.2-4.2) g/dL Albumin/Globulin Ratio (0.9-2.4) RATIO Urine Color (Yellow) Urine Clarity (Clear) Urine pH (5.0 - 8.0) Ur Specific [place] (1.002-1.030) Urine Protein (Negative) mg/dl Urine Glucose (UA) (Normal) mg/dl Urine Ketones (Negative) mg/dl Urine Occult Blood (Negative) /ul Urine Nitrite (Negative) Urine Bilirubin (Negative) mg/dL Urine Urobilinogen (Normal) mg/dl Ur Leukocyte Esterase (Negative) /ul Urine RBC (0-5) /hpf Urine WBC (0-5) /hpf Ur Squamous Epith Cells (0-5) /hpf Urine Bacteria (None Seen) /hpf Urine Mucus (<or=2+) /hpf Vancomycin Trough (5.0-15.0) ug/mL MRSA (PCR) (Negative) POC Glucose 197 H 202 H (70-110) mg/dL Blood Type Antibody Screen 05/05/18 05/05/18 05/05/18 Range/Units 11:30 07:42 07:40 WBC (4.4-11.0) K/mm3 RBC (4.6-6.2) M/mm3 Hgb (13.0-16.5) g/dl Hct (40-54) % MCV (80-94) fL MCH (27.0-32.0) pg MCHC (32-36) g/gl RDW (11.6-14.6) % RDW Differential (35.1-43.9) fl Plt Count (150-450) K/mm3 MPV (6.2-12.0) fl Immature Gran % (Auto) (0.0-0.9) % Neut % (Auto) (47-70) % Lymph % (Auto) (19-41) % [place] % (Auto) (0-10) % Eos % (Auto) (0-5) % Baso % (Auto) (0-1) % Absolute Neuts (auto) (2.0-7.7) X10^3/uL Absolute Lymphs (auto) (0.83-4.51) X10^3/ul Total Counted Differential Comment Diff Path Review Toxic Granulation Platelet Estimate (ADEQ) Plt Morphology Comment Polychromasia Hypochromasia Anisocytosis Macrocytosis PT (11.7-14.9) SECONDS INR APTT (24.1-36.2) Seconds Sodium (136-145) mmol/L Potassium (3.5-5.1) mmol/L Chloride (98-107) mmol/L Carbon Dioxide (21.0-32.0) mmol/L Anion Gap (5-15) BUN (7-18) mg/dL Creatinine (0.70-1.30) mg/dL Estim Creat Clear Calc ml/min Est GFR (MDRD) Af Amer (>60) mL/min Est GFR (MDRD) Non-Af (>60) mL/min BUN/Creatinine Ratio (10-20) RATIO Glucose (74-106) mg/dL Lactic Acid (0.4-2.0) mmol/L Calcium (8.5-10.1) mg/dL Total Bilirubin (0.20-1.00) mg/dL AST (15-37) U/L ALT (16-61) U/L Alkaline Phosphatase (45-117) U/L Total Protein (6.4-8.2) g/dL Albumin (3.2-5.0) g/dL Globulin (2.2-4.2) g/dL Albumin/Globulin Ratio (0.9-2.4) RATIO Urine Color (Yellow) Urine Clarity (Clear) Urine pH (5.0 - 8.0) Ur Specific [place] (1.002-1.030) Urine Protein (Negative) mg/dl Urine Glucose (UA) (Normal) mg/dl Urine Ketones (Negative) mg/dl Urine Occult Blood (Negative) /ul Urine Nitrite (Negative) Urine Bilirubin (Negative) mg/dL Urine Urobilinogen (Normal) mg/dl Ur Leukocyte Esterase (Negative) /ul Urine RBC (0-5) /hpf Urine WBC (0-5) /hpf Ur Squamous Epith Cells (0-5) /hpf Urine Bacteria (None Seen) /hpf Urine Mucus (<or=2+) /hpf Vancomycin Trough (5.0-15.0) ug/mL MRSA (PCR) Negative (Negative) POC Glucose 245 H 239 H (70-110) mg/dL Blood Type Antibody Screen 05/05/18 05/05/18 05/04/18 Range/Units 05:22 05:00 23:58 WBC (4.4-11.0) K/mm3 RBC (4.6-6.2) M/mm3 Hgb (13.0-16.5) g/dl Hct (40-54) % MCV (80-94) fL MCH (27.0-32.0) pg MCHC (32-36) g/gl RDW (11.6-14.6) % RDW Differential (35.1-43.9) fl Plt Count (150-450) K/mm3 MPV (6.2-12.0) fl Immature Gran % (Auto) (0.0-0.9) % Neut % (Auto) (47-70) % Lymph % (Auto) (19-41) % [place] % (Auto) (0-10) % Eos % (Auto) (0-5) % Baso % (Auto) (0-1) % Absolute Neuts (auto) (2.0-7.7) X10^3/uL Absolute Lymphs (auto) (0.83-4.51) X10^3/ul Total Counted Differential Comment Diff Path Review Toxic Granulation Platelet Estimate (ADEQ) Plt Morphology Comment Polychromasia Hypochromasia Anisocytosis Macrocytosis PT (11.7-14.9) SECONDS INR APTT (24.1-36.2) Seconds Sodium 137 (136-145) mmol/L Potassium 4.6 (3.5-5.1) mmol/L Chloride 99 (98-107) mmol/L Carbon Dioxide 30.0 (21.0-32.0) mmol/L Anion Gap 8 (5-15) BUN 16 (7-18) mg/dL Creatinine 0.78 (0.70-1.30) mg/dL Estim Creat Clear Calc 77.00 ml/min Est GFR (MDRD) Af Amer 129 (>60) mL/min Est GFR (MDRD) Non-Af 106 (>60) mL/min BUN/Creatinine Ratio 20.5 H (10-20) RATIO Glucose 247 H (74-106) mg/dL Lactic Acid 1.3 (0.4-2.0) mmol/L Calcium 7.7 L (8.5-10.1) mg/dL Total Bilirubin (0.20-1.00) mg/dL AST (15-37) U/L ALT (16-61) U/L Alkaline Phosphatase (45-117) U/L Total Protein (6.4-8.2) g/dL Albumin (3.2-5.0) g/dL Globulin (2.2-4.2) g/dL Albumin/Globulin Ratio (0.9-2.4) RATIO Urine Color Yellow (Yellow) Urine Clarity Sl. Cloudy (Clear) Urine pH 6.5 (5.0 - 8.0) Ur Specific [place] 1.010 (1.002-1.030) Urine Protein 15 H (Negative) mg/dl Urine Glucose (UA) Normal (Normal) mg/dl Urine Ketones Negative (Negative) mg/dl Urine Occult Blood 10 H (Negative) /ul Urine Nitrite Negative (Negative) Urine Bilirubin Negative (Negative) mg/dL Urine Urobilinogen Normal (Normal) mg/dl Ur Leukocyte Esterase 25 H (Negative) /ul Urine RBC 0 SEEN (0-5) /hpf Urine WBC 0-5 SEEN (0-5) /hpf Ur Squamous Epith Cells 0 SEEN (0-5) /hpf Urine Bacteria RARE (None Seen) /hpf Urine Mucus RARE (<or=2+) /hpf Vancomycin Trough (5.0-15.0) ug/mL MRSA (PCR) (Negative) POC Glucose (70-110) mg/dL Blood Type Antibody Screen 05/04/18 05/04/18 05/04/18 Range/Units 22:55 22:55 22:55 WBC (4.4-11.0) K/mm3 RBC (4.6-6.2) M/mm3 Hgb (13.0-16.5) g/dl Hct (40-54) % MCV (80-94) fL MCH (27.0-32.0) pg MCHC (32-36) g/gl RDW (11.6-14.6) % RDW Differential (35.1-43.9) fl Plt Count (150-450) K/mm3 MPV (6.2-12.0) fl Immature Gran % (Auto) (0.0-0.9) % Neut % (Auto) (47-70) % Lymph % (Auto) (19-41) % [place] % (Auto) (0-10) % Eos % (Auto) (0-5) % Baso % (Auto) (0-1) % Absolute Neuts (auto) (2.0-7.7) X10^3/uL Absolute Lymphs (auto) (0.83-4.51) X10^3/ul Total Counted Differential Comment Diff Path Review Toxic Granulation Platelet Estimate (ADEQ) Plt Morphology Comment Polychromasia Hypochromasia Anisocytosis Macrocytosis PT 13.0 (11.7-14.9) SECONDS INR 1.0 APTT 26.9 (24.1-36.2) Seconds Sodium 137 (136-145) mmol/L Potassium 4.0 (3.5-5.1) mmol/L Chloride 98 (98-107) mmol/L Carbon Dioxide 30.0 (21.0-32.0) mmol/L Anion Gap 9 (5-15) BUN 12 (7-18) mg/dL Creatinine 0.78 (0.70-1.30) mg/dL Estim Creat Clear Calc 80.11 ml/min Est GFR (MDRD) Af Amer 128 (>60) mL/min Est GFR (MDRD) Non-Af 106 (>60) mL/min BUN/Creatinine Ratio 15.3 (10-20) RATIO Glucose 100 (74-106) mg/dL Lactic Acid (0.4-2.0) mmol/L Calcium 7.5 L (8.5-10.1) mg/dL Total Bilirubin 0.70 (0.20-1.00) mg/dL AST 17 (15-37) U/L ALT 21 (16-61) U/L Alkaline Phosphatase 71 (45-117) U/L Total Protein 5.6 L (6.4-8.2) g/dL Albumin 2.8 L (3.2-5.0) g/dL Globulin 2.8 (2.2-4.2) g/dL Albumin/Globulin Ratio 1.0 (0.9-2.4) RATIO Urine Color (Yellow) Urine Clarity (Clear) Urine pH (5.0 - 8.0) Ur Specific [place] (1.002-1.030) Urine Protein (Negative) mg/dl Urine Glucose (UA) (Normal) mg/dl Urine Ketones (Negative) mg/dl Urine Occult Blood (Negative) /ul Urine Nitrite (Negative) Urine Bilirubin (Negative) mg/dL Urine Urobilinogen (Normal) mg/dl Ur Leukocyte Esterase (Negative) /ul Urine RBC (0-5) /hpf Urine WBC (0-5) /hpf Ur Squamous Epith Cells (0-5) /hpf Urine Bacteria (None Seen) /hpf Urine Mucus (<or=2+) /hpf Vancomycin Trough (5.0-15.0) ug/mL MRSA (PCR) (Negative) POC Glucose (70-110) mg/dL Blood Type O POSITIVE Antibody Screen NEGATIVE 05/04/18 Range/Units 22:55 WBC 9.2 (4.4-11.0) K/mm3 RBC 2.78 L (4.6-6.2) M/mm3 Hgb 9.4 L (13.0-16.5) g/dl Hct 30.0 L (40-54) % MCV 107.9 H (80-94) fL MCH 33.8 H (27.0-32.0) pg MCHC 31.3 L (32-36) g/gl RDW 19.1 H (11.6-14.6) % RDW Differential 68.8 H (35.1-43.9) fl Plt Count 48 L* (150-450) K/mm3 MPV 12.7 H (6.2-12.0) fl Immature Gran % (Auto) 0.700 (0.0-0.9) % Neut % (Auto) 81.0 H (47-70) % Lymph % (Auto) 6.4 L (19-41) % [place] % (Auto) 11.8 H (0-10) % Eos % (Auto) 0.0 (0-5) % Baso % (Auto) 0.1 (0-1) % Absolute Neuts (auto) 7.5 (2.0-7.7) X10^3/uL Absolute Lymphs (auto) 0.59 L (0.83-4.51) X10^3/ul Total Counted Not Reportable Differential Comment RARE Diff Path Review Reviewed Toxic Granulation 1+ Platelet Estimate MKD DEC (ADEQ) Plt Morphology Comment LARGE Polychromasia 1+ Hypochromasia 1+ Anisocytosis 1+ Macrocytosis 1+ PT (11.7-14.9) SECONDS INR APTT (24.1-36.2) Seconds Sodium (136-145) mmol/L Potassium (3.5-5.1) mmol/L Chloride (98-107) mmol/L Carbon Dioxide (21.0-32.0) mmol/L Anion Gap (5-15) BUN (7-18) mg/dL Creatinine (0.70-1.30) mg/dL Estim Creat Clear Calc ml/min Est GFR (MDRD) Af Amer (>60) mL/min Est GFR (MDRD) Non-Af (>60) mL/min BUN/Creatinine Ratio (10-20) RATIO Glucose (74-106) mg/dL Lactic Acid (0.4-2.0) mmol/L Calcium (8.5-10.1) mg/dL Total Bilirubin (0.20-1.00) mg/dL AST (15-37) U/L ALT (16-61) U/L Alkaline Phosphatase (45-117) U/L Total Protein (6.4-8.2) g/dL Albumin (3.2-5.0) g/dL Globulin (2.2-4.2) g/dL Albumin/Globulin Ratio (0.9-2.4) RATIO Urine Color (Yellow) Urine Clarity (Clear) Urine pH (5.0 - 8.0) Ur Specific [place] (1.002-1.030) Urine Protein (Negative) mg/dl Urine Glucose (UA) (Normal) mg/dl Urine Ketones (Negative) mg/dl Urine Occult Blood (Negative) /ul Urine Nitrite (Negative) Urine Bilirubin (Negative) mg/dL Urine Urobilinogen (Normal) mg/dl Ur Leukocyte Esterase (Negative) /ul Urine RBC (0-5) /hpf Urine WBC (0-5) /hpf Ur Squamous Epith Cells (0-5) /hpf Urine Bacteria (None Seen) /hpf Urine Mucus (<or=2+) /hpf Vancomycin Trough (5.0-15.0) ug/mL MRSA (PCR) (Negative) POC Glucose (70-110) mg/dL Blood Type Antibody Screen oncology- Dr Byrd infectious disease- Dr Cornelius Operations: None Procedures: None Summary of Care Provided: The patient is a 63 year old M with a history of squamous cell lung cancer with last chemo about 2 weeks prior to presentation was admitted with a complaint of fever. He had recently been admitted at [facility] and discharged on Levaquin and prednisone. He finished antibiotics about 2 days later but subsequently developed fever, chills and shortness of breath and was generally not feeling well. Pressure was 102.4 on arrival. He had an associated cough productive of yellowish greenish color. Admitting note, he had a scheduled to have a PET scan on May 13, 2018 in [place]. Patient was admitted and managed for sepsis due to healthcare associated pneumonia likely due to postobstructive pneumonia in the setting of right squamous cell lung cancer. He was started on vancomycin and meropenem. Patient subsequently improved. He was also noted to be thrombocytopenic and anemic which are likely due to his cancer. Oncology was consulted and recommended patient follow-up with his primary oncologist in [place]. Patient remained stable. Blood cultures were negative. 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 ID reviewed and adjusted antibiotics to cefepime. Patient remained stable and was discharged home on 05/07/2018 with a 5-day course of Omnicef. He is to follow-up with his primary care doctor and oncologist as well as lung doctor. Patient seen and examined. He felt well and was comfortably eating breakfast. He had no complaints and denied any fever or chills, any cough or chest pain, any shortness of breath, abdominal pain, any diarrhea vomiting. Review of s ystems is otherwise negative. Labs and vitals reviewed. Home medications reviewed and reconciled. [] Patient Problems: Active and Suspected Problems Healthcare associated bacterial pneumonia (Acute) Thrombocytopenia (Acute) Thrombocytopenia, acquired (Acute) - Physical Exam General: Alert, Oriented x3, Cooperative, No apparent distress HEENT: Atraumatic, PERRLA, EOMI, Normocephalic Oral: Moist Mucosa Neck: Supple, No JVD, Negative Carotid Bruits Lungs: Clear to auscultation, Normal air movement, No rhonchi, No wheeze, No rales Cardiovascular: Regular rate, Regular Rhythm, Normal S1, Normal S2, No murmurs Abdomen: Bowel Sounds Present, Soft, Non Tender, Non-Distended, No Hepato- splenomegaly Extremities: No clubbing, No cyanosis, No edema, Capillary Refill Less than 3 Seconds Skin: No rashes, No breakdown Musculoskeletal: No Tenderness to Palpation of Joints or Extremities Lymphatic: No Cervical, Supraclavicular, or Inguinal Adenopathy Neurological: Cranial nerves II-XII grossly intact, Neuro grossly intact, Motor Exam 5/5 strength throughout Psych/Mental Status: Normal Affect, Appropriate, Alert and oriented to time, place, person, mood and affect Vital Signs Temp Pulse Resp BP Pulse Ox 97.7 F L 93 20 H 114/60 94 05/07/18 08:53 05/07/18 11:00 05/07/18 08:53 05/07/18 08:53 05/07/18 08:53 Oxygen Flow Rate (L/min) 2 Oxygen Delivery Method Nasal Cannula Weight: 204 lb 2.369 oz Body Mass Index (BMI) 36.1 Intake and Output for Last 24 Hours 05/05/18 05/06/18 05/07/18 23:59 23:59 23:59 Intake Total 1630 / 1630 250 / 250 Output Total Balance 1630 / 1630 250 / 250 Microbiology Past 72 Hours 05/04/18 22:55 Blood Culture - Preliminary Blood Culture (Wb) - Left Forearm No growth in 48 hours. 05/04/18 22:50 Blood Culture - Preliminary Blood Culture (Wb) - Anticubital Left No growth in 48 hours. 05/06/18 07:35 Gram Stain - Final Sputum, Expectorated/Coughed Respiratory Culture - Preliminary Yeast Like Organism 05/06/18 17:20 Respiratory Panel (PCR) - Final Mucosa - Nose 05/05/18 05:22 Urine Culture - Final Urine, Clean Catch Culture exhibits no growth. 05/06/18 17:20 Gram Stain - Preliminary Sputum, Expectorated/Coughed 05/05/18 05:22 Legionella Antigen - Final Urine, Clean Catch 05/05/18 05:22 Streptococcus pneumoniae Antigen (M - Final Urine, Clean Catch Laboratory Tests Past 24 Hrs 05/04/18 05/06/18 05/06/18 22:55 05:16 12:20 WBC RBC Hgb Hct MCV MCH MCHC RDW RDW Differential Plt Count MPV Immature Gran % (Auto) Neut % (Auto) Lymph % (Auto) [place] % (Auto) Eos % (Auto) Baso % (Auto) Absolute Neuts (auto) Absolute Lymphs (auto) Total Counted Diff Path Review Reviewed Reviewed Platelet Estimate Hypochromasia Anisocytosis Macrocytosis Sodium Potassium Chloride Carbon Dioxide Anion Gap BUN Creatinine Estim Creat Clear Calc Est GFR (MDRD) Af Amer Est GFR (MDRD) Non-Af BUN/Creatinine Ratio Glucose Calcium Vancomycin Trough 18.5 H 05/07/18 05/07/18 05:30 05:30 WBC 7.8 RBC 2.23 L Hgb 7.6 L Hct 24.6 L MCV 110.3 H MCH 34.1 H MCHC 30.9 L RDW 19.1 H RDW Differential 66.5 H Plt Count 50 L* MPV 11.6 Immature Gran % (Auto) 0.600 Neut % (Auto) 85.5 H Lymph % (Auto) 7.2 L [place] % (Auto) 6.7 Eos % (Auto) 0.0 Baso % (Auto) 0.0 Absolute Neuts (auto) 6.7 Absolute Lymphs (auto) 0.56 L Total Counted Not Reportable Diff Path Review Reviewed Platelet Estimate MKD DEC Hypochromasia 2+ Anisocytosis 1+ Macrocytosis 1+ Sodium 141 Potassium 3.9 Chloride 105 Carbon Dioxide 31.0 Anion Gap 5 BUN 14 Creatinine 0.50 L Estim Creat Clear Calc 120.12 Est GFR (MDRD) Af Amer 218 Est GFR (MDRD) Non-Af 180 BUN/Creatinine Ratio 28.3 H Glucose 141 H Calcium 7.8 L Vancomycin Trough POC Glucose 05/07/18 05/06/18 05/06/18 06:48 21:44 16:45 POC Glucose 148 H 181 H 165 H Discharge Diet: Low fat/ Low Cholesterol Discharge Activity: Return to Normal Activity Weight Bearing Status: Weight bearing as tolerated Call your doctor if you observe: Fever of 101 or Higher, Shortness of breath, Swelling in the ankles, Chest pain, Increased palpitations (irregular heartbeat) Home Medications: Medications to take at Discharge Albuterol Aerosols [Ventolin Aerosols] 2.5 mg INHALATION Q6HWA.RT 05/04/18 Albuterol Inhaler [Ventolin Hfa] 2 puff INHALATION Q6H PRN PRN 05/04/18 Ascorbic Acid [Vitamin C] 500 mg PO DAILY@0800 05/04/18 Budesonide [Pulmicort Flexhaler] 2 puff IH Q12H 05/04/18 Cyanocobalamin [Vitamin B12] 500 mcg PO DAILY@0800 05/04/18 Gabapentin [Neurontin] 300 mg PO TIDCM 05/04/18 Metformin HCl [Glucophage Xr] 500 mg PO DAILY 05/04/18 Omeprazole 40 mg PO DAILY 05/04/18 Simvastatin [Zocor] 40 mg PO DAILY 05/04/18 Tiotropium [place] [Spiriva Respimat] 2 puff IH DAILY 05/04/18 Turmeric/Turmeric Root Extract [Turmeric 500 mg Capsule] 500 mg PO BID 05/04/18 Vitamin E 400 unit PO DAILY 05/04/18 Insulin Human 75/25 [Humalog Mix 75-25 Kwikpen] 20 unit SQ TID PRN 05/05/18 Cefdinir [Omnicef [equiv]] 300 mg PO Q12H #14 capsule 05/07/18 Prednisone 40 mg PO DAILY 5 Days #10 tablet 05/07/18 Following Prescrptions Were Given to Patient: Cefdinir [Omnicef [equiv]] 300 mg PO Q12H #14 capsule Prednisone 40 mg PO DAILY 5 Days #10 tablet Primary Care Physician: Bravo Walters MD [Primary Care Provider] - Please follow up with your Primary Care Physician in: 1 week When: oncologist in [place] in 1 week Please Follow Up With: Karthik Campos MD When: 1-2 weeks Disposition: Home Minutes spent on discharge:: 40 Patient Condition:: Stable Medical Necessity - Tobacco Use Smoking Status: Former smoker Meaningful Use Info Meaningful Use Diagnoses (Choose all that apply): None applicable Code Visit Inpatient E&M: 90593 Disch Hosp
--- NOTE | 2018-05-07 11:45 | DCINST_ITS ---
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) Thrombocytopenia (Acute) Thrombocytopenia, acquired (Acute) You will use the following diet at home:: Cardiac Your food should be the consistency of: Regular Your liquids should be the consistency of: Regular/Thin Discharge Activity: Return to Normal Activity Weight Bearing Status: Weight bearing as tolerated Call your doctor if you observe: Fever of 101 or Higher, Shortness of breath, Swelling in the ankles, Chest pain, Increased palpitations (irregular heartbeat) Allergies/Adverse Reactions: Allergies Penicillins Allergy (Mild, Verified 05/06/18 14:59) Hives Reports tolerating amoxicillin and keflex in past with no issue Medications to take at Discharge Albuterol Aerosols [Ventolin Aerosols] 2.5 mg INHALATION Q6HWA.RT 05/04/18 Albuterol Inhaler [Ventolin Hfa] 2 puff INHALATION Q6H PRN PRN 05/04/18 Ascorbic Acid [Vitamin C] 500 mg PO DAILY@0800 05/04/18 Budesonide [Pulmicort Flexhaler] 2 puff IH Q12H 05/04/18 Cyanocobalamin [Vitamin B12] 500 mcg PO DAILY@0800 05/04/18 Gabapentin [Neurontin] 300 mg PO TIDCM 05/04/18 Metformin HCl [Glucophage Xr] 500 mg PO DAILY 05/04/18 Omeprazole 40 mg PO DAILY 05/04/18 Simvastatin [Zocor] 40 mg PO DAILY 05/04/18 Tiotropium [place] [Spiriva Respimat] 2 puff IH DAILY 05/04/18 Turmeric/Turmeric Root Extract [Turmeric 500 mg Capsule] 500 mg PO BID 05/04/18 Vitamin E 400 unit PO DAILY 05/04/18 Insulin Human 75/25 [Humalog Mix 75-25 Kwikpen] 20 unit SQ TID PRN 05/05/18 Cefdinir [Omnicef [equiv]] 300 mg PO Q12H #14 capsule 05/07/18 Prednisone 40 mg PO DAILY 5 Days #10 tablet 05/07/18 The following prescriptions were given: Cefdinir [Omnicef [equiv]] 300 mg PO Q12H #14 capsule Prednisone 40 mg PO DAILY 5 Days #10 tablet Primary Care Physician: Bravo Walters MD [Primary Care Provider] - Please follow up with your Primary Care Physician in: 1 week Test Results: Test results from this visit will be discussed in further detail at your follow- up appointment, if applicable. When: oncologist in [place] in 1 week Please Follow Up With: Karthik Campos MD When: 1-2 weeks Proposed Discharge Date: 05/07/18
[2018-05-07 11:50] LABS: Bedside Glucose 143 mg/dL (70-110)
--- NOTE | 2018-05-07 12:28 | PHA.DC.COU ---
Pharmacy Services has performed discharge medication counseling for this patient. The patient was counseled on the following discharge medications and changes in medications for homegoing review. Cefdinir [Omnicef [equiv]] 300 mg PO Q12H #14 capsule 05/07/18 Prednisone 40 mg PO DAILY 5 Days #10 tablet 05/07/18 The Reason for Use, instructions for use, and potential side effects were reviewed for all new medications. The patient's questions regarding all of their medications were answered. The patient was able to verbally demonstrate an understanding of their discharge medications.
[2018-05-07] MEDS: Insulin Lispro 100 UNIT/ML INSULN.PEN SC (16:49)
[2018-05-07 16:50] LABS: Bedside Glucose 179 mg/dL (70-110)
--- NOTE | 2018-05-08 15:09 | CASEMGMT ---
DAGOBERTO ELLIOTT Discharge follow-up phone call. LACE: 10 STRATA: 3 Discharge Date: 05-07-18 Adm Dx: Sepsis d/t pneumonia. Attempted discharge follow-up phone call. No answer and message states VM has not been set up yet. Unable to leave a message. Ari GONZALEZN DAGOBERTO CM
== END 2018-05-07 18:23 | disposition home or self-care (01) | DRG 720 ==
LOC: ED 22:57 → PCU 05-05 01:00
PROVIDERS: Internal Medicine; Physician Assistant; Admitting Provider Hospitalist; Emergency Provider Emergency Medicine; Family Provider Family Medicine; PCP Family Medicine; Visit Provider Student in an Organized Health Care Education/Training Program
DX: A41.9 Sepsis, unspecified organism (principal); J15.9 Unspecified bacterial pneumonia; Y95 Nosocomial condition; C34.91 Malignant neoplasm of unspecified part of right bronchus or lung; Z99.81 Dependence on supplemental oxygen; Z79.899 Other long term (current) drug therapy; D63.0 Anemia in neoplastic disease; J44.9 Chronic obstructive pulmonary disease, unspecified; Z87.891 Personal history of nicotine dependence; Z88.0 Allergy status to penicillin; E11.9 Type 2 diabetes mellitus without complications; Z79.84 Long term (current) use of oral hypoglycemic drugs; E78.5 Hyperlipidemia, unspecified; D69.59 Other secondary thrombocytopenia
CPT/HCPCS: 36415; 71045; 80048; 80053; 80202; 81001; 82962; 83605; 85025; 85610; 85730; 86850; 86900; 87040; 87070; 87086; 87205; 87449; 87633; 87641; 93005; 94640; 94667; 94668; 97162; 97165; 97802; 99284; J2185; J7030; J7040; J7050; A4216

== ENCOUNTER → 2019-09-04 15:24 | Outpatient (CLI) | payer MEDICARE, MEDICAID, SELFPAY ==
[2018-05-05 01:00] VITALS: BMI 36.1
[2019-09-04 17:58] LABS: Platelet Count 202 K/mm3 (150-450)
== END ==
PROVIDERS: PCP Family Medicine; Referring Provider Internal Medicine Pulmonary Disease; Visit Provider Internal Medicine Pulmonary Disease
DX: R06.00 Dyspnea, unspecified (principal); J44.9 Chronic obstructive pulmonary disease, unspecified
CPT/HCPCS: 36415; 85049

== ENCOUNTER → 2019-09-08 13:33 | Outpatient (CLI) | payer MEDICARE, MEDICAID, SELFPAY ==
[2018-05-05 01:00] VITALS: BMI 36.1
--- NOTE | 2019-09-08 | FLU_PTH ---
PATIENT: FILIBERTO SOSA LOC: [facility]#:[id number] AGE/SX: 70/M ROOM: RE09/08/[address]: Dr. Karthik Campos MD : [id number] BED: DIS: SPEC #: [id number] RECD: 09/08/19 15:03 STATUS: JOSSUE TERESITA #: [id number] JOSE ENRIQUE: 09/08/19 00:[address]: Karthik Campos V DEPT: CYTOLOGY RECD BY: Manan Walters ENTERED: 09/09/19 08:00 SP TYPE: Fluid OTHR DR: Dr. Bravo Walters MD Tissues: THORACIC FLUID Procedures: Special Stain Group II Surgery Specimen Level IV Cytospin Fluid HEADER OPERATION: Ultrasound-guided right thoracentesis PRE-OP DIAGNOSIS: Right pleural effusion TISSUE SUBMITTED: Thoracentesis fluid for cytology DIAGNOSIS CYTOLOGY Thoracentesis fluid for cytology (cytospin and cell block): Negative for malignant cells. AM:katerin 3/11/20 CYTOLOGY STUDY Slides are reviewed. CYTOLOGY GROSS Received is 30 ml of yellow cloudy fluid labeled with the patient's name and and designated per the requisition as thoracentesis. Submitted for cytology preparation including cell block. / rg 09/09/19 TC:5 CPT: 56614, 79933
--- NOTE | 2019-09-08 13:41 | US_ITS ---
PROCEDURE: ULTRASOUND GUIDED THORACENTESIS. DATE: September 08, 2019. INDICATION: Male, 64 years old. Right pleural effusion PHYSICIAN: Presley Patel M.D. PROCEDURE: The risks, benefits, and alternatives to the procedure were explained to the patient. The specific risks of bleeding, infection, and pneumothorax requiring chest tube insertion were discussed and accepted. Written informed consent was obtained. Ultrasonographic evaluation of the right lower pleural space was carried out. An adequate pocket was identified. The patient was placed in the sitting, upright position. The overlying skin was prepped and draped in sterile fashion. 1% lidocaine was administered subcutaneously for local anesthesia. Under ultrasound guidance, a 5 [place] thoracentesis needle/catheter system was advanced into the right posterior lower pleural fluid collection. Approximately 40 mL of mateo-colored fluid was drained. The catheter was removed, and a sterile dressing was applied. A specimen was collected and sent to the laboratory for analysis, as requested by the referring clinician. The patient tolerated the procedure well. A chest x-ray was ordered. US/Thoracentesis W US IMPRESSION: Ultrasound-guided right thoracentesis. Electronically Signed: Presley Patel, at 15:14 EDT , Service support ,
--- NOTE | 2019-09-08 14:28 | RAD_ITS ---
STUDY: X-RAY CHEST REASON FOR EXAM: Male, 64 years old. Post thoracentesis for dyspnea and pleural effusion TECHNIQUE: AP inspiration and expiration views. COMPARISON: Comparison is made with prior examination dated May 04, 2018. FINDINGS: Stable volume loss in the right hemithorax with the scarring in the right upper lobe. There is no evidence of pneumothorax on the immediate post right lung biopsy radiograph. There is blunting of the right costophrenic angle. Osteoarthritis of both shoulder joints. RAD/Chest Insp/Exp 2 View IMPRESSION: No evidence of pneumothorax on the immediate postright thoracentesis radiograph. Electronically Signed: Presley Patel, at 14:50 EDT , Service support ,
[2019-09-08 14:50] VITALS: BP 133/90; BP 136/91; BP 138/83; PULSE 113; PULSE 114; PULSE 117; RESP 18; TEMP 36.6; O2SAT 97; O2SAT 98
[2019-09-08 15:01] LABS: Cytology, Body Fluid / CSF SEE PATHOLOGY REPORT
== END ==
PROVIDERS: PCP Family Medicine; Referring Provider Internal Medicine Pulmonary Disease; Visit Provider Internal Medicine Pulmonary Disease
DX: J90 Pleural effusion, not elsewhere classified (principal); R06.00 Dyspnea, unspecified
CPT/HCPCS: 32555; 71046; 88108; 88305; 88313

== ENCOUNTER → 2023-12-04 | Outpatient (CLI) | payer MEDICARE, MEDICAID, SELFPAY ==
[2023-12-04 13:38] LABS: Allen Test Positive; Base Excess 15 mmol/L (-2 to +2); Bicarbonate 39.9 mmol/L (22-26); Blood Gas Specimen Type ART; Mode Not entered; O2 Delivery Device Cannula; PO2 138 mmHG (75-100); SITE L Radial; SO2 99 % (95-99); Time Given 13:35:28; Total Carbon Dioxide 42 mmol/L; pCO2 67.9 mmHg (35-45); pH 7.38 (7.35-7.45)
--- NOTE | 2023-12-04 14:00 | CPS ---
Called Dr Campos's office w/critical result on ABG, left message. This RT then faxed the results to his office. @[phone], the office called back and were given the critical result.
== END | disposition home or self-care (01) ==
PROVIDERS: PCP Family Medicine; Referring Provider Internal Medicine Pulmonary Disease; Visit Provider Internal Medicine Pulmonary Disease
DX: J44.9 Chronic obstructive pulmonary disease, unspecified (principal); R06.02 Shortness of breath; R09.02 Hypoxemia; G47.33 Obstructive sleep apnea (adult) (pediatric)
CPT/HCPCS: 36600; 82803

== ENCOUNTER → 2024-05-16 | Outpatient (CLI) | payer MEDICARE, MEDICAID, SELFPAY ==
[2024-05-16 12:37] LABS: Absolute Lymphocyte Count 0.53 X10^3/uL (0.83-4.51); Absolute Neutrophil Count 5.6 X10^3/uL (2.0-7.7); Basophil# 0.01 X10^3/uL; Basophil% 0.2 % (0-1); Eosinophil# 0.01 X10^3/uL; Eosinophils% 0.2 % (0-5); Hematocrit 36.1 % (40-54); Hemoglobin 11.3 g/dL (13.0-16.5); Lymphocyte # 0.53 X10^3/ul (0.83-4.51); Lymphocyte % 8.3 % (19-41); Mean Corp Hgb Conc 31.3 g/dL (32-36); Mean Corpuscular Hgb 30.3 pg (27.0-32.0); Mean Corpuscular Volume 96.8 fL (80-94); Mean Platelet Vol. 11.1 fl (6.2-12.0); Monocyte# 0.29 X10^3/uL; Monocyte% 4.5 % (0-10); NRBC Flagged by Analyzer 0 % (0-5); Neutrophil # 5.56 X10^3/uL (2.7-7.7); Neutrophil % 86.5 % (47-70); POSITIVE DIFFERENTIAL YES; Platelet Count 158 K/mm3 (150-450); RBC Distribution Width CV 12.2 % (11.6-14.6); RBC Distribution Width SD 43.1 fl (35.1-43.9); Red Blood Count 3.73 M/mm3 (4.6-6.2); White Blood Count 6.4 K/mm3 (4.4-11.0)
== END | disposition home or self-care (01) ==
LOC: MTLAB 11:06
PROVIDERS: PCP Family Medicine; Referring Provider Internal Medicine Pulmonary Disease; Visit Provider Internal Medicine Pulmonary Disease
DX: R06.02 Shortness of breath (principal); J44.9 Chronic obstructive pulmonary disease, unspecified
CPT/HCPCS: 36415; 85025

== ENCOUNTER → 2024-05-28 | Outpatient (CLI) | payer MEDICARE, SELFPAY ==
[2024-05-28 11:47] LABS: Absolute Lymphocyte Count 1.04 X10^3/uL (0.83-4.51); Basophil# 0.02 X10^3/uL; Basophil% 0.4 % (0-1); Eosinophil# 0.13 X10^3/uL; Eosinophils% 2.3 % (0-5); Lymphocyte # 1.04 X10^3/ul (0.83-4.51); Lymphocyte % 18.2 % (19-41); Mean Corp Hgb Conc 30.6 g/dL (32-36); Mean Corpuscular Hgb 30.1 pg (27.0-32.0); Mean Corpuscular Volume 98.4 fL (80-94); Mean Platelet Vol. 10.8 fl (6.2-12.0); Monocyte# 0.51 X10^3/uL; Monocyte% 8.9 % (0-10); NRBC Flagged by Analyzer 0 % (0-5); Neutrophil # 3.98 X10^3/uL (2.7-7.7); Neutrophil % 69.8 % (47-70); Platelet Count 155 K/mm3 (150-450); RBC Distribution Width CV 12.2 % (11.6-14.6); RBC Distribution Width SD 44.1 fl (35.1-43.9); Red Blood Count 3.66 M/mm3 (4.6-6.2); White Blood Count 5.7 K/mm3 (4.4-11.0)
== END | disposition home or self-care (01) ==
LOC: MTLAB 10:39
PROVIDERS: PCP Family Medicine; Referring Provider Internal Medicine Pulmonary Disease; Visit Provider Internal Medicine Pulmonary Disease
DX: R06.02 Shortness of breath (principal); J44.9 Chronic obstructive pulmonary disease, unspecified
CPT/HCPCS: 36415; 85025